=== PATIENT | female | born 1935 | race Caucasian/White ===

== ENCOUNTER 2017-05-23 11:59 | Observation (INO) | payer MEDICARE ==
[~2017-05-23] VITALS: Ht 165.1 cm; Wt 55.0 kg
[2017-05-23] VITALS (7 sets, daily range): BP systolic 110–151; BP diastolic 47–88; PULSE 78–85; RESP 16–18; TEMP 97.3–97.7; O2SAT 94–98
[~2017-05-23 11:59] MED LIST: ALBU0.086 NEB; ASPI81TA82 PO; CLOP75TA PO; COZA50TA PO; DIAZ5 PO; DILA100C PO; ESTRTAB6 PO; FORM12I INH; FURO20TA PO; IPRA0.03; METO100T PO; POTA-267 PO; PRED10 PO; PROT40TA PO; THEO200T27 PO; VENTAER INH; ZOCO40TA PO
[2017-05-23] MEDS ORDERED: PANTOPRAZOLE INJ 80 MG in SODIUM CHLORIDE 0.9% INJ 35 ML IV ONE (12:15)
[2017-05-23] MEDS ORDERED: SODIUM CHLORID 0.9% 500 ML INJ 500 ML IV ONE (12:15)
[2017-05-23] MEDS ORDERED: SODIUM CHLORIDE 0.9% FLUSH 10 ML FLUSH IVF PRN (12:15)
[2017-05-23] MEDS ORDERED: PANTOPRAZOLE INJ 80 MG in SODIUM CHLORIDE 0.9% INJ 100 ML IV SCH (12:15)
[2017-05-23] MEDS ORDERED: ONDANSETRON HCL 4 MG/2 ML VIAL IVP ONE (12:15)
--- NOTE | 2017-05-23 12:17 | PD ---
HPI Chief Complaint: GI Complaint Time Seen by Provider: 12:14 Travel History International Travel<30 days: No Contact w/Intl Traveler<30days: No Traveled to known affect area: No History of Present Illness HPI 81-year-old female patient with history of multiple medical issues, currently on Plavix and aspirin, presents to the ER today because she states that she had started vomiting red blood this morning. She brings a tile which shows blood clots. She denies any black stools, fevers, chest pains, shortness of breath, diarrhea, or any other symptoms. She denies any previous history of GI bleeding. Modifying Factors: None Associated Signs & Symptoms: Vomiting blood Risk Factors: None PFSH Past Medical History Hx Anticoagulant Therapy: Yes Arthritis: Yes Asthma: No Atrial Fibrillation: Yes Autoimmune Disease: No Blood Disorders: No Heart Rhythm Problems: No Cancer: No Cardiovascular Problems: Yes High Cholesterol: Yes Chest Pain: Yes Congestive Heart Failure: No COPD: Yes Cerebrovascular Accident: Yes (CVA 2013) Diabetes: No Diminished Hearing: Yes Endocrine: No Gastrointestinal Disorders: Yes GERD: Yes Genitourinary: No Hepatitis: No Hiatal Hernia: No Hypertension: Yes Immune Disorder: No Kidney Stones: Yes Musculoskeletal: Yes Neurologic: Yes Psychiatric: No Respiratory: Yes Migraines: No Seizures: Yes (POST CVA) Sleep Apnea: No Thyroid Disease: No Ulcer: No PNEUMOCCOCAL Vaccine (Year): 1 ?: Not Menopausal: Yes Past Surgical History Abdominal Surgery: Yes (APPENDECTOMY,CHOECYSTECTOMY, hysterectomy) Appendectomy: Yes Cholecystectomy: Yes (2002) Endocrine Surgery: Yes (GALLBLADDER) Eye Surgery: Yes (BILAT CATARACT) Hysterectomy: Yes (1986) Pacemaker: No Other Surgery: Yes (BREAST BIOPSIES) Social History Alcohol Use: No (DENIES) Tobacco Use: No (FORMER) Substance Use: No Allergies-Medications (Allergen,Severity, Reaction): Coded Allergies: Cardizem (Verified Allergy, Severe, 05/23/17) hives Cipro (Verified Allergy, Severe, Rash, 05/23/17) Cymbalta (Unverified Allergy, Severe, Confusion, 05/23/17) Erythromycins (Verified Allergy, Severe, "MYCINS"-HIVES, 05/23/17) Maxzide (Verified Allergy, Severe, 05/23/17) Norvasc (Verified Allergy, Severe, SWELLING, 05/23/17) Talwin (Verified Allergy, Severe, CRAZY, 05/23/17) Gabapentin (Verified Allergy, Unknown, 05/23/17) Reported Meds & Prescriptions Reported Meds & Active Scripts Active Reported Ventolin Hfa 18 GM Inh (Albuterol Sulfate) 90 Mcg/Act Aer 2 Puff INH Q4-6H PRN Spironolactone 25 Mg Tab 25 Mg PO DAILY Zocor (Simvastatin) 10 Mg Tab 10 Mg PO DAILY Prednisone 10 Mg Tab 15 Mg PO DAILY Potassium Chloride ER (Potassium Chloride) 20 Meq Tab 20 Meq PO DAILY Pantoprazole (Pantoprazole Sodium) 40 Mg Tab 40 Mg PO DAILY Metoprolol Tartrate 100 Mg Tab 100 Mg PO BID Losartan (Losartan Potassium) 100 Mg Tab 100 Mg PO DAILY Furosemide 20 Mg Tab 20 Mg PO EVERY OTHER DAY Perforomist Neb (Formoterol Fumarate) 20 Mcg/2 Ml Neb 1 Nebule INH BID Estroven Mood & Memory (Black Cohosh-Soy Isoflavones-G) 1 Tab 1 Tab PO DAILY Dilantin (Phenytoin Extended) 100 Mg Cap 100 Mg PO BID Clopidogrel (Clopidogrel Bisulfate) 75 Mg Tab 75 Mg PO DAILY Albuterol Neb (Albuterol Sulfate) 2.5 Mg/3 Ml Neb 2.5 Mg NEB Q4HR NEB While awake Review of Systems Except as stated in HPI: all other systems reviewed are Neg Physical Exam Narrative GENERAL: Well-developed pleasant elderly white female patient currently in mild distress. Awake and oriented 3. SKIN: Focused skin assessment warm/dry. HEAD: Atraumatic. Normocephalic. EYES: Pupils equal and round. No scleral icterus. No injection or drainage. ENT: No nasal bleeding or discharge. Mucous membranes pink and moist. NECK: Trachea midline. No JVD. CARDIOVASCULAR: Regular rate and rhythm. No murmur appreciated. RESPIRATORY: No accessory muscle use. Clear to auscultation. Breath sounds equal bilaterally. GASTROINTESTINAL: Abdomen soft, non-tender, nondistended. Hepatic and splenic margins not palpable. MUSCULOSKELETAL: No obvious deformities. No clubbing. No cyanosis. No edema. NEUROLOGICAL: Awake and alert. No obvious cranial nerve deficits. Motor grossly within normal limits. Normal speech. PSYCHIATRIC: Appropriate mood and affect; insight and judgment normal. Data Data Last Documented VS Vital Signs Date Time Temp Pulse Resp B/P Pulse Ox O2 Delivery O2 Flow Rate FiO2 05/23/17 12:30 97 Room Air 05/23/17 12:06 97.4 85 18 127/60 Orders Complete Blood Count With Diff (05/23/17 12:14) Comprehensive Metabolic Panel (05/23/17 12:14) Lipase (05/23/17 12:14) Prothrombin Time / Inr (Pt) (05/23/17 12:14) Act Partial Throm Time (Ptt) (05/23/17 12:14) Type And Screen (05/23/17 12:14) Ecg Monitoring (05/23/17 12:14) Iv Access Insert/Monitor (05/23/17 12:14) Oximetry (05/23/17 12:14) Ondansetron Inj (Zofran Inj) (05/23/17 12:15) Sodium Chloride 0.9% Flush (Ns Flush) (05/23/17 12:15) Pantoprazole Inj (Protonix Inj) (05/23/17 12:15) Pantoprazole Inj (Protonix Inj) (05/23/17 12:15) Sodium Chlorid 0.9% 500 Ml Inj (Ns 500 M (05/23/17 12:15) Consult Gastroenterology (05/23/17 ) NPO (05/23/17 13:13) Labs Laboratory Tests Test 05/23/17 12:30 White Blood Count 7.4 TH/MM3 Red Blood Count 3.22 MIL/MM3 Hemoglobin 10.5 GM/DL Hematocrit 31.9 % Mean Corpuscular Volume 98.9 FL Mean Corpuscular Hemoglobin 32.6 PG Mean Corpuscular Hemoglobin 33.0 % Concent Red Cell Distribution Width 14.0 % Platelet Count 299 TH/MM3 Mean Platelet Volume 7.3 FL Neutrophils (%) (Auto) 70.9 % Lymphocytes (%) (Auto) 22.2 % Monocytes (%) (Auto) 5.2 % Eosinophils (%) (Auto) 1.2 % Basophils (%) (Auto) 0.5 % Neutrophils # (Auto) 5.2 TH/MM3 Lymphocytes # (Auto) 1.6 TH/MM3 Monocytes # (Auto) 0.4 TH/MM3 Eosinophils # (Auto) 0.1 TH/MM3 Basophils # (Auto) 0.0 TH/MM3 CBC Comment DIFF FINAL Differential Comment Prothrombin Time 10.6 SEC Prothromb Time International 1.0 RATIO Ratio Activated Partial 22.4 SEC Thromboplast Time Sodium Level 140 MEQ/L Potassium Level 4.5 MEQ/L Chloride Level 103 MEQ/L Carbon Dioxide Level 29.5 MEQ/L Anion Gap 8 MEQ/L Blood Urea Nitrogen 44 MG/DL Creatinine 1.30 MG/DL Estimat Glomerular Filtration 40 ML/MIN Rate Random Glucose 99 MG/DL Calcium Level 8.5 MG/DL Total Bilirubin 0.3 MG/DL Aspartate Amino Transf 29 U/L (AST/SGOT) Alanine Aminotransferase 20 U/L (ALT/SGPT) Alkaline Phosphatase 56 U/L Total Protein 5.7 GM/DL Albumin 2.9 GM/DL Lipase 263 U/L MDM Medical Decision Making Medical Screen Exam Complete: Yes Emergency Medical Condition: Yes Medical Record Reviewed: Yes Interpretation(s) Laboratory Tests Test 05/23/17 12:30 Red Blood Count 3.22 MIL/MM3 (4.00-5.30) Hemoglobin 10.5 GM/DL (11.6-15.3) Hematocrit 31.9 % (35.0-46.0) Neutrophils (%) (Auto) 70.9 % (16.0-70.0) Activated Partial 22.4 SEC Thromboplast Time (24.3-30.1) Blood Urea Nitrogen 44 MG/DL (7-18) Creatinine 1.30 MG/DL (0.50-1.00) Estimat Glomerular Filtration 40 ML/MIN (>89) Rate Total Protein 5.7 GM/DL (6.4-8.2) Albumin 2.9 GM/DL (3.4-5.0) Differential Diagnosis GI bleeding/rule out coagulopathy versus anemia Narrative Course Vital signs are stable in the ER. His H&H appears to be stable. Her coagulation panel is unremarkable. At this point, my plan would be to admit her for observation for hematemesis and GI bleeding. Case was discussed with Dr. Ta who states he wants the patient to stay nothing by mouth for possible scoping today. Case was then discussed with Dr. Osborne for admission. Diagnosis Primary Impression: Hematemesis Additional Impression: GI bleed Admitting Information Admitting Physician Requests: Admit Emily Paredes MD May 23, 2017 12:17
[2017-05-23 12:37] LABS: AUTOMATED NEUTROPHIL # 5.2 TH/MM3 (1.8-7.7); BASOPHIL % 0.5 % (0.0-2.0); EOSINOPHIL # 0.1 TH/MM3 (0-0.4); EOSINOPHIL % 1.2 % (0.0-4.0); HEMATOCRIT 31.9 % (35.0-46.0); HEMO FLAGS DIFF FINAL; LYMPH % 22.2 % (9.0-44.0); LYMPHOCYTE # 1.6 TH/MM3 (1.0-4.8); MEAN CELL VOLUME 98.9 FL (80.0-100.0); MEAN CORPUSCULAR HEMOGLOBIN 32.6 PG (27.0-34.0); MONO % 5.2 % (0.0-8.0); NEUT % 70.9 % (16.0-70.0); PLATELET COUNT 299 TH/MM3 (150-450); RED BLOOD COUNT 3.22 MIL/MM3 (4.00-5.30); WHITE BLOOD COUNT 7.4 TH/MM3 (4.0-11.0)
[2017-05-23 12:45] LABS: CHLORIDE 103 MEQ/L (98-107); POTASSIUM 4.5 MEQ/L (3.5-5.1); SODIUM (NA) 140 MEQ/L (136-145)
[2017-05-23 12:49] LABS: ANION GAP 8 MEQ/L (5-15); BICARBONATE 29.5 MEQ/L (21.0-32.0); BLOOD UREA NITROGEN 44 MG/DL (7-18)
[2017-05-23 12:50] LABS: APTT (PATIENT) 22.4 SEC (24.3-30.1); PROTHROMBIN TIME - PATIENT 10.6 SEC (9.8-11.6)
[2017-05-23 12:51] LABS: ALT (GPT) 20 U/L (10-53); AST (GOT) 29 U/L (15-37)
[2017-05-23 12:52] LABS: GLOMERULAR FILTRATION RATE 40 ML/MIN (>89)
[2017-05-23 12:53] LABS: TOTAL BILIRUBIN ADULT 0.3 MG/DL (0.2-1.0)
[2017-05-23 12:54] LABS: ALKALINE PHOSPHATASE 56 U/L (45-117)
[2017-05-23] MEDS ORDERED: METO100T PO (13:20)
[2017-05-23] MEDS ORDERED: VENTAER INH (13:20)
[2017-05-23] MEDS ORDERED: LOSA100T PO (13:20)
[2017-05-23] MEDS ORDERED: ESTRTAB6 PO (13:20)
[2017-05-23] MEDS ORDERED: DILA100C PO (13:20)
[2017-05-23] MEDS ORDERED: PANT40TA3 PO (13:20)
[2017-05-23] MEDS ORDERED: POTA-163 PO (13:20)
[2017-05-23] MEDS ORDERED: CLOP75TA PO (13:20)
[2017-05-23] MEDS ORDERED: SPIR25TA PO (13:20)
[2017-05-23] MEDS ORDERED: FURO20TA PO (13:20)
[2017-05-23] MEDS ORDERED: FORM20NE INH (13:20)
[2017-05-23] MEDS ORDERED: ZOCO10TA PO (13:20)
[2017-05-23] MEDS ORDERED: ALBU0.08 NEB (13:20)
[2017-05-23] MEDS ORDERED: PRED10 PO (13:20)
[2017-05-23] MEDS ORDERED: ALBUTEROL SULFATE 90 MCG/ACT HFA 8 GM INHALER INH PRN (14:30)
[2017-05-23] MEDS ORDERED: ALBUTEROL SULFATE 90 MCG/ACT HFA 18 GM INHALER INH PRN (14:45)
[2017-05-23] MEDS ORDERED: FORMOTEROL INH SCH (15:00)
[2017-05-23] MEDS: RESP: ALBUTEROL 2.5 MG/3 ML NEB (SCH) INH ×3 (15:13→23:19)
--- NOTE | 2017-05-23 17:45 | HHI.HP ---
HPI Service [facility] Hospitalists Primary Care Physician Coleen Ricketts MD Admission Diagnosis GI bleed/hematemesis Chief Complaint: hematemesis this am Travel History International Travel<30 Days: No Contact w/Intl Traveler <30 Da: No Traveled to Known Affected Are: No History of Present Illness 81-year-old female patient with history of multiple medical issues, currently on Plavix and aspirin for CVA 2013 ,with seizure disorder, presents to the ER today because she states that she had started vomiting red blood this morning. She brings a tile which shows blood clots. She denies any black stools, fevers , chest pains, shortness of breath, diarrhea, or any other symptoms. She denies any previous history of GI bleeding. No other symptoms . Patient to be admitted follow cbc and GI evaluation. Review of Systems Other hematemesis Past Family Social History Past Medical History CVA 2013,afib,djd,hyperlipid,COPD,GERD,HTN,kidney stone,seizure Past Surgical History appendix,gallbladder,hysterectomy,cataract Reported Medications Ventolin Hfa 18 GM Inh (Albuterol Sulfate) 90 Mcg/Act Aer 2 Puff INH Q4-6H PRN Spironolactone 25 Mg Tab 25 Mg PO DAILY Zocor (Simvastatin) 10 Mg Tab 10 Mg PO DAILY Prednisone 10 Mg Tab 15 Mg PO DAILY Potassium Chloride ER (Potassium Chloride) 20 Meq Tab 20 Meq PO DAILY Pantoprazole (Pantoprazole Sodium) 40 Mg Tab 40 Mg PO DAILY Metoprolol Tartrate 100 Mg Tab 100 Mg PO BID Losartan (Losartan Potassium) 100 Mg Tab 100 Mg PO DAILY Furosemide 20 Mg Tab 20 Mg PO EVERY OTHER DAY Perforomist Neb (Formoterol Fumarate) 20 Mcg/2 Ml Neb 1 Nebule INH BID Estroven Mood & Memory (Black Cohosh-Soy Isoflavones-G) 1 Tab 1 Tab PO DAILY Dilantin (Phenytoin Extended) 100 Mg Cap 100 Mg PO BID Clopidogrel (Clopidogrel Bisulfate) 75 Mg Tab 75 Mg PO DAILY Albuterol Neb (Albuterol Sulfate) 2.5 Mg/3 Ml Neb 2.5 Mg NEB Q4HR NEB While Allergies: Coded Allergies: Cardizem (Verified Allergy, Severe, 05/23/17) hives Cipro (Verified Allergy, Severe, Rash, 05/23/17) Cymbalta (Unverified Allergy, Severe, Confusion, 05/23/17) Erythromycins (Verified Allergy, Severe, "MYCINS"-HIVES, 05/23/17) Maxzide (Verified Allergy, Severe, 05/23/17) Norvasc (Verified Allergy, Severe, SWELLING, 05/23/17) Talwin (Verified Allergy, Severe, CRAZY, 05/23/17) Gabapentin (Verified Allergy, Unknown, 05/23/17) Social History former smoker Physical Exam Vital Signs Vital Signs Date Time Temp Pulse Resp B/P Pulse Ox O2 Delivery O2 Flow Rate FiO2 05/23/17 16:00 97.3 78 18 121/57 98 05/23/17 15:17 96 21 05/23/17 13:34 80 16 110/47 97 05/23/17 12:30 97 Room Air 05/23/17 12:06 97.4 85 18 127/60 97 Physical Exam GENERAL: This is a well-nourished, well-developed patient, in no apparent distress. SKIN: No rashes, ecchymoses or lesions. Cool and dry. HEAD: Atraumatic. Normocephalic. No temporal or scalp tenderness. EYES: Pupils equal round and reactive. Extraocular motions intact. No scleral icterus. No injection or drainage. ENT: Nose without bleeding, purulent drainage or septal hematoma. Throat without erythema, tonsillar hypertrophy or exudate. Uvula midline. Airway patent. NECK: Trachea midline. No JVD or lymphadenopathy. Supple, nontender, no meningeal signs. CARDIOVASCULAR: Regular rate and rhythm without murmurs, gallops, or rubs. RESPIRATORY: Clear to auscultation. Breath sounds equal bilaterally. No wheezes , rales, or rhonchi. GASTROINTESTINAL: Abdomen soft, non-tender, nondistended. No hepato-splenomegaly , or palpable masses. No guarding. MUSCULOSKELETAL: Extremities without clubbing, cyanosis, or edema. No joint tenderness, effusion, or edema noted. No calf tenderness. Negative Homans sign bilaterally. NEUROLOGICAL: Awake and alert. Cranial nerves II through XII intact. Motor and sensory grossly within normal limits. Five out of 5 muscle strength in all muscle groups. Normal speech. Laboratory Laboratory Tests Test 05/23/17 12:30 White Blood Count 7.4 Red Blood Count 3.22 Hemoglobin 10.5 Hematocrit 31.9 Mean Corpuscular Volume 98.9 Mean Corpuscular Hemoglobin 32.6 Mean Corpuscular Hemoglobin 33.0 Concent Red Cell Distribution Width 14.0 Platelet Count 299 Mean Platelet Volume 7.3 Neutrophils (%) (Auto) 70.9 Lymphocytes (%) (Auto) 22.2 Monocytes (%) (Auto) 5.2 Eosinophils (%) (Auto) 1.2 Basophils (%) (Auto) 0.5 Neutrophils # (Auto) 5.2 Lymphocytes # (Auto) 1.6 Monocytes # (Auto) 0.4 Eosinophils # (Auto) 0.1 Basophils # (Auto) 0.0 CBC Comment DIFF FINAL Differential Comment Prothrombin Time 10.6 Prothromb Time International 1.0 Ratio Activated Partial 22.4 Thromboplast Time Sodium Level 140 Potassium Level 4.5 Chloride Level 103 Carbon Dioxide Level 29.5 Anion Gap 8 Blood Urea Nitrogen 44 Creatinine 1.30 Estimat Glomerular Filtration 40 Rate Random Glucose 99 Calcium Level 8.5 Total Bilirubin 0.3 Aspartate Amino Transf 29 (AST/SGOT) Alanine Aminotransferase 20 (ALT/SGPT) Alkaline Phosphatase 56 Total Protein 5.7 Albumin 2.9 Lipase 263 Blood Type A POSITIVE Antibody Screen NEGATIVE Result Diagram: 05/23/17 1230 05/23/17 1230 Course in er started on protonix drip Assessment and Plan Problem List: (1) Hematemesis Status: Acute Plan: follow cbc start protonix drip NPO as GI may scope today (2) GI bleed Status: Acute Plan: as above Assessment and Plan further plan as case develops follow cbc hols asa for now continue plavix Code Status full Discussed Condition With patient Physician Certification 2 Midnight Certification Type: Admission for Inpatient Services Order for Inpatient Services The services are ordered in accordance with Medicare regulations or non- Medicare payer requirements, as applicable. In the case of services not specified as inpatient-only, they are appropriately provided as inpatient services in accordance with the 2-midnight benchmark. Estimated LOS (days): 2 2 days is the estimated time the patient will need to remain in the hospital, assuming treatment plan goals are met and no additional complications. Post-Hospital Plan: Not yet determined Peter Harris MD May 23, 2017 17:44
[2017-05-23] MEDS ORDERED: MIDAZOLAM HCL 5 MG/ML VIAL (1 ML) ONE (19:50)
--- NOTE | 2017-05-23 21:04 | GIPROC ---
[facility] [address] [place] [address], [id number] EGD PROCEDURE REPORT EXAM DATE: 05/23/2017 PATIENT NAME: Roxy Joy MR #: [id number] BIRTHDATE: 1935 ATTENDING: Nas Ta MD ORDER #: [id number] INVENTORY SPECIALIST MANAGER: Saeid Martinez and Kumar Ma STATUS: inpatient INDICATIONS: The patient is a 81 yr old female here for an EGD due to hematemesis PROCEDURE PERFORMED: EGD, diagnostic MEDICATIONS: None and Per Anesthesia. TOPICAL ANESTHETIC: Lidocaine [place] CONSENT: The patient understands the risks and benefits of the procedure and understands that these risks include, but are not limited to: sedation, allergic reaction, infection, perforation and/or bleeding. Alternative means of evaluation and treatment include, among others: physical exam, x-rays, and/or surgical intervention. The patient elects to proceed with this endoscopic procedure. medical equipment was checked for proper function. Hand hygiene and appropriate measures for infection prevention was taken. After the risks, benefits and alternatives of the procedure were thoroughly explained, Informed consent was verified, confirmed and timeout was successfully executed by the treatment team. The patient was anesthetized with topical anesthesia and the Pentax EG-[id number] endoscope was introduced through the mouth and advanced to the second portion of the duodenum. Retroflexed views revealed no abnormalities The gastroscope was then slowly withdrawn and removed. Deep gastric ulcer in the antrum no active bleeding, most likely source of the bleed gastritis. The endoscopy was otherwise normal. No sign of active bleed. ADVERSE EVENTS: There were no complications. IMPRESSIONS: 1. Deep gastric ulcer in the antrum no active bleeding, most likely source of the bleed gastritis 2. Normal endoscopy otherwise 3. No sign of active bleed 4. Retroflexed views revealed no abnormalities RECOMMENDATIONS: 1. Anti-reflux regimen 2. Avoid NSAIDS 3. If anticoagulation is needed, please use the lowest possible does with close monitering check stool for H pylori 4. Anti-reflux regimen 5. Protonix 40mg Q AM PATIENT CONDITION: stable DISPOSITION: Inpatient REPEAT EXAM: Return 1 month EGD RTC in 2 wks Nas Ta MD eSigned: Nas Ta MD 05/23/2017 9:03 PM cc: PATIENT NAME: Roxy Joy MR#: [id number]
--- NOTE | 2017-05-23 21:10 | MB ---
cc: ELBA PEREZ M.D. DATE OF CONSULTATION 05/23/2017 DATE OF 1935 REASON FOR REFERRAL Hematemesis. Thank you for the consultation. REFERRING PHYSICIAN Dr. Harris HISTORY OF PRESENT ILLNESS This is a pleasant 81-year-old lady with multiple medical problems. The patient was doing okay until this morning when she started having some cramping and she was retching and after she was retching she brought some vomitus with bloody clots. The patient denied massive bleeding and denied any black stool or fever. No significant amount of vomiting except this episode. The patient is on anticoagulation including Plavix and aspirin for a CVA. The patient denied any other GI symptom at this time. PAST MEDICAL HISTORY 1. Significant for CVA. 2. Hyperlipidemia. 3. COPD. 4. Hypertension. 5. Kidney stone. 6. Seizure disorder. 7. Reflux symptoms. MEDICATIONS Reviewed in the chart. PAST SURGICAL HISTORY Significant for hysterectomy, cataract surgery, gallbladder, appendix removal. ALLERGIES MULTIPLE INCLUDING CIPRO, CYMBALTA, ERYTHROMYCIN, MAXZIDE, NORVASC, TALWIN, GABAPENTIN, CARDIZEM. SOCIAL HISTORY No tobacco at this time, she used to smoke and rare alcohol. REVIEW OF SYSTEMS All 12-point negative except HPI. PHYSICAL EXAMINATION GENERAL: Alert, oriented, no acute distress. VITAL SIGNS: Stable. HEENT: Pupils are round, reactive to light. NECK: Supple. CHEST: Clear to auscultation and precaution. CARDIAC: Regular rate and rhythm. No murmur or gallop at this time. ABDOMEN: Soft, nondistended, nontender, positive bowel sounds. EXTREMITIES: No edema, clubbing or cyanosis. NEUROLOGICALLY: Alert, oriented, intact. No focal abnormality. PSYCHOLOGICALLY: Appropriate. LABORATORY DATA White count 7.4. Hemoglobin 10.5, platelet 299. INR 1.0. Chemistry BUN 44, creatinine 1.3. Normal liver function tests. Normal lipase. ASSESSMENT/PLAN A 81-year-old lady who has nausea and vomiting and hematemesis with mild anemia, could be Farheen-Jackson tear, could be peptic ulcer disease, could be esophagitis. I will plan on doing upper endoscopy to ensure that she is not actively bleeding. Will be careful because the patient is on anticoagulation and there is a slight increased risk of bleeding but we want to make sure that she does not continue to bleed if there is active bleeding. The patient agreeable to have the procedure done. This will be done on an urgent basis today. MD CATARINA Huffman/NADEEM /8:03 PM /8:55 PM
[2017-05-23] MEDS: PHENYTOIN SODIUM 100 MG CAP PO SCH (22:01)
[2017-05-23] MEDS: METOPROLOL TARTRATE 100 MG TAB PO SCH (22:01)
[2017-05-24 00:17] VITALS: BP 144/62; PULSE 83; RESP 20; TEMP 96.6; O2SAT 93
[2017-05-24] MEDS: RESP: ALBUTEROL 2.5 MG/3 ML NEB (SCH) INH ×4 (04:00→15:05)
[2017-05-24 07:17] LABS: AUTOMATED NEUTROPHIL # 3.3 TH/MM3 (1.8-7.7); BASOPHIL % 0.4 % (0.0-2.0); EOSINOPHIL # 0.1 TH/MM3 (0-0.4); EOSINOPHIL % 1.3 % (0.0-4.0); HEMATOCRIT 26.7 % (35.0-46.0); HEMO FLAGS DIFF FINAL; LYMPH % 28.9 % (9.0-44.0); LYMPHOCYTE # 1.5 TH/MM3 (1.0-4.8); MEAN CELL VOLUME 98.1 FL (80.0-100.0); MEAN CORPUSCULAR HEMOGLOBIN 32.9 PG (27.0-34.0); MEAN CORPUSCULAR HGB CONC 33.5 % (32.0-36.0); MONO % 5.1 % (0.0-8.0); NEUT % 64.3 % (16.0-70.0); PLATELET COUNT 240 TH/MM3 (150-450); RED BLOOD COUNT 2.72 MIL/MM3 (4.00-5.30); RED CELL DISTRIBUTION WIDTH 13.6 % (11.6-17.2); WHITE BLOOD COUNT 5.2 TH/MM3 (4.0-11.0)
[2017-05-24 07:31] LABS: POTASSIUM 4.5 MEQ/L (3.5-5.1)
[2017-05-24 07:34] LABS: BICARBONATE 30.3 MEQ/L (21.0-32.0)
[2017-05-24 08:00] VITALS: BP 138/61; PULSE 75; RESP 20; TEMP 97.2; O2SAT 96
[2017-05-24 08:06] VITALS: O2SAT 94
[2017-05-24] MEDS ORDERED: PANTOPRAZOLE SOD 40 MG DELAYED RELEASE TAB PO SCH (09:00)
[2017-05-24] MEDS ORDERED: POTASSIUM CHLORIDE 20 MEQ CONTROLLED RELEASE TAB PO SCH (09:00)
[2017-05-24] MEDS ORDERED: [UNRECOGNIZED DRUG - OTHER] PO SCH (09:00)
[2017-05-24] MEDS ORDERED: LOSARTAN 50 MG TAB PO SCH (09:00)
[2017-05-24] MEDS ORDERED: CLOPIDOGREL 75 MG TAB PO SCH (09:00)
[2017-05-24] MEDS ORDERED: SPIRONOLACTONE 25 MG TAB PO SCH (09:00)
[2017-05-24] MEDS ORDERED: PRAVASTATIN SOD 20 MG TAB PO SCH (09:00)
[2017-05-24] MEDS ORDERED: predniSONE 5 MG TAB PO SCH (09:00)
[2017-05-24] MEDS: PHENYTOIN SODIUM 100 MG CAP PO SCH (10:02)
[2017-05-24] MEDS: METOPROLOL TARTRATE 100 MG TAB PO SCH (10:02)
--- NOTE | 2017-05-24 11:08 | HHI.PR ---
Subjective Remarks Patient feeling well admitted for upper gi bleed endoscopy showed peptic ulcer not actively bleeding and GI changed patient to po protonix hgb did decrease to 8.9 will recheck later today if stable discharge later. Advance diet Objective Vitals Vital Signs Date Time Temp Pulse Resp B/P Pulse Ox O2 Delivery O2 Flow Rate FiO2 05/24/17 08:06 94 21 05/24/17 08:00 97.2 75 20 138/61 96 05/24/17 04:44 05/24/17 00:17 96.6 83 20 144/62 93 05/23/17 21:31 97.7 85 18 151/88 94 05/23/17 19:15 97 21 05/23/17 16:00 97.3 78 18 121/57 98 05/23/17 15:17 96 21 05/23/17 13:34 80 16 110/47 97 05/23/17 12:30 97 Room Air 05/23/17 12:06 97.4 85 18 127/60 97 05/23/17 05/23/17 05/24/17 15:00 23:00 07:00 Intake Total 600 ml 40 ml Balance 600 ml 40 ml Intake IV Total 600 ml 40 ml Result Diagram: 05/24/17 0706 05/24/17 0706 A/P Problem List: (1) Hematemesis Status: Acute Plan: follow cbc on protonix with peptic ulcer advance diet (2) GI bleed Status: Acute Plan: as above Assessment and Plan as above recheck cbc if stable discharge later today Peter Harris MD May 24, 2017 11:08
[2017-05-24 12:00] VITALS: BP 118/50; PULSE 64; RESP 18; TEMP 97.7; O2SAT 96
--- NOTE | 2017-05-24 14:11 | HHI.GIFU ---
Subjective Remarks patient is doing well, no sign of active bleed, she dropped her HGB but no other complains. had EGD yesterday showing large deep ulcer in the antrum but no active bleed Objective Vitals I&O Vital Signs Date Time Temp Pulse Resp B/P Pulse Ox O2 Delivery O2 Flow Rate FiO2 05/24/17 12:00 97.7 64 18 118/50 96 05/24/17 08:06 94 21 05/24/17 08:00 97.2 75 20 138/61 96 05/24/17 04:44 05/24/17 00:17 96.6 83 20 144/62 93 05/23/17 21:31 97.7 85 18 151/88 94 05/23/17 19:15 97 21 05/23/17 16:00 97.3 78 18 121/57 98 05/23/17 15:17 96 21 I/O 05/23/17 05/23/17 05/23/17 05/24/17 05/24/17 05/24/17 07:00 15:00 23:00 07:00 15:00 23:00 Intake Total 600 ml 40 ml Balance 600 ml 40 ml Intake IV Total 600 ml 40 ml Laboratory Laboratory Tests Test 05/24/17 07:06 White Blood Count 5.2 Red Blood Count 2.72 Hemoglobin 8.9 Hematocrit 26.7 Mean Corpuscular Volume 98.1 Mean Corpuscular Hemoglobin 32.9 Mean Corpuscular Hemoglobin 33.5 Concent Red Cell Distribution Width 13.6 Platelet Count 240 Mean Platelet Volume 7.2 Neutrophils (%) (Auto) 64.3 Lymphocytes (%) (Auto) 28.9 Monocytes (%) (Auto) 5.1 Eosinophils (%) (Auto) 1.3 Basophils (%) (Auto) 0.4 Neutrophils # (Auto) 3.3 Lymphocytes # (Auto) 1.5 Monocytes # (Auto) 0.3 Eosinophils # (Auto) 0.1 Basophils # (Auto) 0.0 CBC Comment DIFF FINAL Differential Comment Sodium Level 141 Potassium Level 4.5 Chloride Level 105 Carbon Dioxide Level 30.3 Anion Gap 6 Blood Urea Nitrogen 39 Creatinine 1.10 Estimat Glomerular Filtration 48 Rate Random Glucose 81 Calcium Level 8.0 Physical Exam HEENT: Pupils round and reactive to light; normocephalic; atraumatic; no jaundice. Throat is clear. NECK: Neck is supple, no JVD, no lymphadenopathy. CHEST: Chest is clear to auscultation and percussion. CARDIAC: Regular rate and rhythm with no murmur gallop or rubs. ABDOMEN: Soft, nondistended, nontender; no hepatosplenomegaly; bowel sounds are present in all four quadrants. EXTREMITIES: No clubbing, cyanosis, or edema. SKIN: Normal; no rash; no jaundice. SENIOR INFORMATICA DEVELOPER: No focal deficits; alert and oriented times three. Assessment and Plan Plan patient is doing better, no sign of active bleed, dropped HGB recommend continue PPI check H/H this afternoon PRBC if needed. EGD as outpatient in 4 wks Nas Ta MD May 24, 2017 14:11
[2017-05-24 15:03] LABS: HEMATOCRIT 28.3 % (35.0-46.0); MEAN CELL VOLUME 98.4 FL (80.0-100.0); MEAN CORPUSCULAR HEMOGLOBIN 33.5 PG (27.0-34.0); PLATELET COUNT 253 TH/MM3 (150-450); RED BLOOD COUNT 2.88 MIL/MM3 (4.00-5.30); RED CELL DISTRIBUTION WIDTH 13.4 % (11.6-17.2); REVIEW FLAG FINAL; WHITE BLOOD COUNT 5.9 TH/MM3 (4.0-11.0)
[2017-05-24] MEDS ORDERED: PANT40TA3 PO (15:50)
--- NOTE | 2017-05-24 15:51 | HHI.DCPOC ---
Discharge Care Plan Diagnosis: (1) Hematemesis (2) GI bleed Goals to Promote Your Health * To prevent worsening of your condition and complications * To maintain your health at the optimal level Directions to Meet Your Goals Take your medications as prescribed Follow your dietary instruction Follow activity as directed Keep your appointments as scheduled Take your immunizations and boosters as scheduled If your symptoms worsen call your PCP, if no PCP go to Urgent Care Center or Emergency Room Smoking is Dangerous to Your Health. Avoid second hand smoke Call the 24-hour hour crisis hotline for domestic abuse at Peter Harris MD May 24, 2017 15:51
--- NOTE | 2017-05-24 15:53 | HHI.DS ---
Discharge Summary Admission Date May 23, 2017 at 13:22 Admitting Diagnosis GI bleed/hematemesis (1) Hematemesis Diagnosis: [facility] (2) GI bleed Diagnosis: [facility] GI Procedures endoscopy Brief History 81-year-old female patient with history of multiple medical issues, currently on Plavix and aspirin for CVA 2013 ,with seizure disorder, presents to the ER today because she states that she had started vomiting red blood this morning. She brings a tile which shows blood clots. She denies any black stools, fevers , chest pains, shortness of breath, diarrhea, or any other symptoms. She denies any previous history of GI bleeding. No other symptoms . Patient to be admitted follow cbc and GI evaluation. CBC/BMP: 05/24/17 1450 05/24/17 0706 Significant Findings Laboratory Tests Test 05/23/17 05/24/17 05/24/17 12:30 07:06 14:50 Red Blood Count 3.22 MIL/MM3 2.72 MIL/MM3 2.88 MIL/MM3 (4.00-5.30) (4.00-5.30) (4.00-5.30) Hemoglobin 10.5 GM/DL 8.9 GM/DL 9.6 GM/DL (11.6-15.3) (11.6-15.3) (11.6-15.3) Hematocrit 31.9 % 26.7 % 28.3 % (35.0-46.0) (35.0-46.0) (35.0-46.0) Neutrophils (%) (Auto) 70.9 % (16.0-70.0) Activated Partial 22.4 SEC Thromboplast Time (24.3-30.1) Blood Urea Nitrogen 44 MG/DL (7-18) 39 MG/DL (7-18) Creatinine 1.30 MG/DL 1.10 MG/DL (0.50-1.00) (0.50-1.00) Estimat Glomerular Filtration 40 ML/MIN (>89) 48 ML/MIN (>89) Rate Total Protein 5.7 GM/DL (6.4-8.2) Albumin 2.9 GM/DL (3.4-5.0) Calcium Level 8.0 MG/DL (8.5-10.1) PE at Discharge GENERAL: SKIN: Warm and dry. HEAD: Atraumatic. Normocephalic. EYES: Pupils equal and round. No scleral icterus. No injection or drainage. ENT: No nasal bleeding or discharge. Mucous membranes pink and moist. NECK: Trachea midline. No JVD. CARDIOVASCULAR: Regular rate and rhythm. RESPIRATORY: No accessory muscle use. Clear to auscultation. Breath sounds equal bilaterally. GASTROINTESTINAL: Abdomen soft, non-tender, nondistended. Hepatic and splenic margins not palpable. MUSCULOSKELETAL: Extremities without clubbing, cyanosis, or edema. No obvious deformities. NEUROLOGICAL: Awake and alert. No obvious cranial nerve deficits. Motor grossly within normal limits. Five out of 5 muscle strength in the arms and legs. Normal speech. PSYCHIATRIC: Appropriate mood and affect; insight and judgment normal. Hospital Course patient hemoglobin at discharge >9 had ulcer on endoscopy not active bleed to follow up with gi and pcp and recheck cbc on 05/26/17 continue protonix 40 a day Pt Condition on Discharge: Good Discharge Disposition: Discharge Home Discharge Instructions DIET: Follow Instructions for: Heart Healthy Diet Activities you can perform: Regular-No Restrictions New Medications: Pantoprazole (Pantoprazole) 40 Mg Tab 40 MG PO DAILY ulcer #30 TAB Continued Medications: Albuterol 18 GM Inh (Ventolin Hfa 18 GM Inh) 90 Mcg/Act Aer 2 PUFF INH Q4-6H PRN SHORTNESS OF BREATH #1 Ref 0 INHALER Albuterol Neb (Albuterol Neb) 2.5 Mg/3 Ml Neb 2.5 MG NEB Q4HR NEB While awake Breathing Treatment #60 Ref 0 NEBULE Black Cohosh-Soy Isoflavones-G (Estroven Mood & Memory) 1 Tab 1 TAB PO DAILY hot flashes #30 TAB Clopidogrel (Clopidogrel) 75 Mg Tab 75 MG PO DAILY Blood Clot Prevention #30 Ref 0 TAB Formoterol Neb (Perforomist Neb) 20 Mcg/2 Ml Neb 1 NEBULE INH BID COPD #60 Ref 0 NEBULE Furosemide (Furosemide) 20 Mg Tab 20 MG PO EVERY OTHER DAY #30 Ref 0 TAB Losartan (Losartan) 100 Mg Tab 100 MG PO DAILY Blood Pressure Management #30 Ref 0 TAB Metoprolol Tartrate (Metoprolol Tartrate) 100 Mg Tab 100 MG PO BID Blood Pressure Management #60 Ref 0 TAB Pantoprazole (Pantoprazole) 40 Mg Tab 40 MG PO DAILY Reflux #30 Ref 0 TAB Phenytoin Extended (Dilantin) 100 Mg Cap 100 MG PO BID Control Seizures #90 Ref 0 CAP Potassium Chloride ER (Potassium Chloride ER) 20 Meq Tab 20 MEQ PO DAILY Electrolyte Replacement #30 Ref 0 TAB Prednisone (Prednisone) 10 Mg Tab 15 MG PO DAILY Ref 0 TAB Simvastatin (Zocor) 10 Mg Tab 10 MG PO DAILY Cholesterol Management #30 Ref 0 TAB Spironolactone (Spironolactone) 25 Mg Tab 25 MG PO DAILY Prevent Heart Failure #30 Ref 0 TAB Peter Harris MD May 24, 2017 15:53
[2017-05-25] MEDS ORDERED: FUROSEMIDE 20 MG TAB PO SCH (09:00)
== END 2017-05-24 17:38 | disposition home or self-care (01) ==
LOC: PHED 11:59 → PHEDA 13:22 → PH3B 14:17
PROVIDERS: ADMIT Internal Medicine; ATTEND Internal Medicine
DX: K25.3 Acute gastric ulcer without hemorrhage or perforation (principal); K92.0 Hematemesis; G40.909 Epilepsy, unspecified, not intractable, without status epilepticus; K21.9 Gastro-esophageal reflux disease without esophagitis; J44.9 Chronic obstructive pulmonary disease, unspecified; I48.91 Unspecified atrial fibrillation; E78.5 Hyperlipidemia, unspecified; D64.9 Anemia, unspecified; I10 Essential (primary) hypertension; Z87.891 Personal history of nicotine dependence; Z79.01 Long term (current) use of anticoagulants; Z79.82 Long term (current) use of aspirin; Z86.73 Personal history of transient ischemic attack (TIA), and cerebral infarction without residual deficits; Z87.442 Personal history of urinary calculi
CPT/HCPCS: 43235; 80048; 80053; 83690; 85025; 85027; 85610; 85730; 86850; 86900; 86901; 94620; 94640; 94664; 96361; 96365; 96375; 99152; 99285; C9113; G0378; J2250; J2405; J3010; J7040; J7512; J7613

== ENCOUNTER 2017-08-24 11:12 | Inpatient (IN) | payer MEDICARE ==
[2017-08-24] VITALS (12 sets, daily range): BP systolic 94–154; BP diastolic 45–70; PULSE 54–75; RESP 15–19; TEMP 97.4–97.7; O2SAT 94–100
[~2017-08-24] VITALS: Ht 167.6 cm; Wt 63.5 kg
[~2017-08-24 11:12] MED LIST changes: -DO NOT ADM ANY ANTICOAGULANT DRUGS PRN; -LACTATED RINGER'S 1000 ML INJ 1,000 ML ONE; -LEVOFLOXACIN 500 MG PREMIX INJ 100 ML IV ONE; -MEPERIDINE HCL 25 MG/ML VIAL ONE; -PROPOFOL 200 MG/20 ML AMP IV ONE; -metroNIDAZOLE 500 MG INJ 100 ML IV ONE
[2017-08-24] MEDS ORDERED: SODIUM CHLORIDE 0.9% FLUSH 10 ML FLUSH IV FLUSH PRN ×2 (11:30→15:30)
[2017-08-24] MEDS ORDERED: ONDANSETRON HCL 4 MG/2 ML VIAL IVP ONE (11:30)
[2017-08-24] MEDS ORDERED: MORPHINE SULFATE 4 MG/ML INJ IV PUSH ONE (11:30)
[2017-08-24] MEDS ORDERED: SODIUM CHLOR 0.9% 1000 ML INJ 1,000 ML IV SCH (11:30)
--- NOTE | 2017-08-24 11:39 | PD ---
HPI Chief Complaint: GI Complaint Time Seen by Provider: 11:23 Travel History International Travel<30 days: No Contact w/Intl Traveler<30days: No Traveled to known affect area: No History of Present Illness HPI 82-year-old female presents to the emergency department via EMS sent by Dr. Zeng. During colonoscopy, patient was suspected to have a perforated bowel in the sigmoid. Patient was immediately sent here. Patient is receiving Levaquin 500 mg via IV upon her arrival. Flagyl 500 mg IV was sent with her to receive after Levaquin is finished. Patient's past medical history for arthritis, hypertension, CHF, hyperlipidemia, CVA, GERD, hypertension, seizures, COPD. The patient reports diffuse abdominal pain. She is moaning at bedside. She denies any other significant complaints at this time. PFSH Past Medical History Hx Anticoagulant Therapy: Yes Arthritis: Yes Asthma: No Atrial Fibrillation: Yes Autoimmune Disease: No Blood Disorders: No Heart Rhythm Problems: No Cancer: No Cardiovascular Problems: Yes High Cholesterol: Yes Chest Pain: Yes Congestive Heart Failure: No COPD: Yes Cerebrovascular Accident: Yes Diabetes: No Diminished Hearing: Yes Endocrine: No Gastrointestinal Disorders: Yes GERD: Yes Genitourinary: No Hepatitis: No Hiatal Hernia: No Hypertension: Yes Immune Disorder: No Kidney Stones: Yes Musculoskeletal: Yes Neurologic: Yes Psychiatric: No Respiratory: Yes Migraines: No Seizures: Yes (POST CVA) Sleep Apnea: No Thyroid Disease: No Ulcer: No PNEUMOCCOCAL Vaccine (Year): 1 Menopausal: Yes Past Surgical History Abdominal Surgery: Yes (APPENDECTOMY,CHOECYSTECTOMY, hysterectomy) Appendectomy: Yes Cholecystectomy: Yes (2002) Endocrine Surgery: Yes (GALLBLADDER) Eye Surgery: Yes (BILAT CATARACT) Hysterectomy: Yes (1986) Pacemaker: No Other Surgery: Yes (BREAST BIOPSIES) Social History Alcohol Use: No (DENIES) Tobacco Use: No (FORMER) Substance Use: No Allergies-Medications (Allergen,Severity, Reaction): Coded Allergies: amlodipine (Unverified Allergy, Severe, SWELLING, 08/24/17) azithromycin (Unverified Allergy, Severe, "MYCINS"-HIVES, 08/24/17) ciprofloxacin (Unverified Allergy, Severe, Rash, 08/24/17) diltiazem (Unverified Allergy, Severe, 08/24/17) hives duloxetine (Unverified Allergy, Severe, Confusion, 08/24/17) erythromycin base (Unverified Allergy, Severe, "MYCINS"-HIVES, 08/24/17) hydrochlorothiazide (Unverified Allergy, Severe, 08/24/17) pentazocine (Unverified Allergy, Severe, CRAZY, 08/24/17) triamterene (Unverified Allergy, Severe, 08/24/17) gabapentin (Unverified Allergy, Unknown, 08/24/17) Reported Meds & Prescriptions Reported Meds & Active Scripts Active Pantoprazole (Pantoprazole Sodium) 40 Mg Tab 40 Mg PO DAILY Reported Ventolin Hfa 18 GM Inh (Albuterol Sulfate) 90 Mcg/Act Aer 2 Puff INH Q4-6H PRN Spironolactone 25 Mg Tab 25 Mg PO DAILY Zocor (Simvastatin) 10 Mg Tab 10 Mg PO DAILY Prednisone 10 Mg Tab 15 Mg PO DAILY Potassium Chloride ER (Potassium Chloride) 20 Meq Tab 20 Meq PO DAILY Pantoprazole (Pantoprazole Sodium) 40 Mg Tab 40 Mg PO DAILY Metoprolol Tartrate 100 Mg Tab 100 Mg PO BID Losartan (Losartan Potassium) 100 Mg Tab 100 Mg PO DAILY Furosemide 20 Mg Tab 20 Mg PO EVERY OTHER DAY Perforomist Neb (Formoterol Fumarate) 20 Mcg/2 Ml Neb 1 Nebule INH BID Estroven Mood & Memory (Black Cohosh-Soy Isoflavones-G) 1 Tab 1 Tab PO DAILY Dilantin (Phenytoin Extended) 100 Mg Cap 100 Mg PO BID Clopidogrel (Clopidogrel Bisulfate) 75 Mg Tab 75 Mg PO DAILY Albuterol Neb (Albuterol Sulfate) 2.5 Mg/3 Ml Neb 2.5 Mg NEB Q4HR NEB While awake Review of Systems Except as stated in HPI: all other systems reviewed are Neg Physical Exam Narrative GENERAL: Well-nourished, well-developed elderly female patient, afebrile. SKIN: Focused skin assessment warm/dry. HEAD: Normocephalic. Atraumatic. EYES: No scleral icterus. No injection or drainage. NECK: Supple, trachea midline. No JVD or lymphadenopathy. CARDIOVASCULAR: Regular rate and rhythm without murmurs, gallops, or rubs. RESPIRATORY: Breath sounds equal bilaterally. No accessory muscle use. Lungs sounds are clear to auscultation. GASTROINTESTINAL: Abdomen soft and nondistended. Patient has diffuse tenderness to palpation throughout. MUSCULOSKELETAL: No cyanosis, or edema. BACK: Nontender without obvious deformity. No CVA tenderness. Data Data Last Documented VS Orders Orders Complete Blood Count With Diff (08/24/17 11:23) Comprehensive Metabolic Panel (08/24/17 11:23) Prothrombin Time / Inr (Pt) (08/24/17 11:23) Act Partial Throm Time (Ptt) (08/24/17 11:23) Iv Access Insert/Monitor (08/24/17 11:23) Ecg Monitoring (08/24/17 11:23) Oximetry (08/24/17 11:23) Ondansetron Inj (Zofran Inj) (08/24/17 11:30) Sodium Chloride 0.9% Flush (Ns Flush) (08/24/17 11:30) Electrocardiogram (08/24/17 11:23) Sodium Chlor 0.9% 1000 Ml Inj (Ns 1000 M (08/24/17 11:30) Type And Screen (08/24/17 11:23) Chest, Single Ap (08/24/17 ) Admit Order (Ed Use Only) (08/24/17 11:23) MDM Medical Decision Making Medical Screen Exam Complete: Yes Emergency Medical Condition: Yes Medical Record Reviewed: Yes Differential Diagnosis Perforated bowel versus diverticulitis versus pancreatitis Narrative Course 82-year-old female was sent by Dr. Ta for suspected bowel perforation. I spoke with Dr. Sandoval, our surgeon resource economist, who was aware the patient was coming. He would like labs to be drawn, chest x-ray, EKG, surgical consent to be printed. He'll take the patient to the OR today. Patient is given normal saline at 100 mL's an hour. CBC, CMP, PTT, PT/INR, type and screen ordered and pending. EKG and chest x-ray are ordered and pending. Patient is admitted to Dr. Sandoval. Diagnosis Primary Impression: Perforated bowel Admitting Information Admitting Physician Requests: Admit Delaney Vergara Aug 24, 2017 11:39
[2017-08-24] MEDS ORDERED: GLYCOPYRROLATE 1 MG/5 ML SYRINGE IV PUSH ONE (12:00)
[2017-08-24] MEDS ORDERED: ePHEDrine/NS 25 MG/5 ML SYR IV ONE (12:00)
[2017-08-24] MEDS ORDERED: LACTATED RINGER'S 1000 ML INJ 2,000 ML IV ONE (12:00)
[2017-08-24] MEDS ORDERED: LIDOCAINE HCL 1% PF 5 ML AMPULE OTHER ONE (12:00)
[2017-08-24] MEDS ORDERED: PROPOFOL 200 MG/20 ML AMP IV ONE (12:00)
[2017-08-24] MEDS ORDERED: MIDAZOLAM HCL 2 MG/2 ML VIAL IV ONE (12:00)
[2017-08-24] MEDS ORDERED: ROCURONIUM INJ 50 MG/5 ML SYRINGE IV PUSH ONE (12:00)
[2017-08-24] MEDS ORDERED: ONDANSETRON HCL 4 MG/2 ML VIAL IV PUSH ONE (12:00)
[2017-08-24] MEDS ORDERED: NORMOSOL R INJ 2,000 ML IV ONE (12:00)
[2017-08-24] MEDS ORDERED: NEOSTIGMINE 3 MG/3 ML SYR IV ONE (12:00)
[2017-08-24] MEDS ORDERED: PHENYLEPH/NS 1000 MCG/10 ML SYR IV ONE (12:00)
[2017-08-24 12:03] LABS: AUTOMATED NEUTROPHIL # 4.2 TH/MM3 (1.8-7.7); BASOPHIL % 0.1 % (0.0-2.0); EOSINOPHIL % 0.7 % (0.0-4.0); HEMATOCRIT 39.5 % (35.0-46.0); HEMO FLAGS DIFF FINAL; LYMPH % 20.7 % (9.0-44.0); LYMPHOCYTE # 1.2 TH/MM3 (1.0-4.8); MEAN CELL VOLUME 97.8 FL (80.0-100.0); MEAN CORPUSCULAR HEMOGLOBIN 31.7 PG (27.0-34.0); MEAN CORPUSCULAR HGB CONC 32.4 % (32.0-36.0); MONO % 2.8 % (0.0-8.0); NEUT % 75.7 % (16.0-70.0); PLATELET COUNT 279 TH/MM3 (150-450); RED BLOOD COUNT 4.04 MIL/MM3 (4.00-5.30); RED CELL DISTRIBUTION WIDTH 14.2 % (11.6-17.2); WHITE BLOOD COUNT 5.6 TH/MM3 (4.0-11.0)
--- NOTE | 2017-08-24 12:29 | RADRPT ---
EXAM DATE/TIME: 08/24/2017 11:53 [facility] COMPARISON: No previous studies available for comparison. INDICATIONS : Evaluate for pneumothorax, pneumonia or communicable disease. Preop chest for repair of perforated bell wel today, chest and upper abdomen pain, evaluate free air MEDICAL HISTORY : colonoscopy today SURGICAL HISTORY : None. ENCOUNTER: Initial ACUITY: 1 day PAIN SCORE: 10/10 LOCATION: Bilateral chest FINDINGS: Marked free air. Lung spaces are clear. The heart and pulmonary vascularity are normal. CONCLUSION: Significant free air. Dr. Aakash stone.. Tom Joyner MD FACR on August 24, 2017 at 12:26 Board Certified Radiologist. This report was verified electronically.
--- NOTE | 2017-08-24 12:50 | MH ---
cc: ELBA TA M.D.ALICIABEREKET BHAKTA DATE OF ADMISSION: 08/24/2017 CHIEF COMPLAINT Perforation of sigmoid colon. HISTORY OF PRESENT ILLNESS This patient was having an upper GI endoscopy and a colonoscopy today with Dr. Ta and he called me after the procedure and said that when he was looking in the sigmoid colon he saw intra-abdominal fat consistent with omentum or epiploica. For this reason she was transferred from [place] to the emergency department at [facility] for evaluation and probable surgery. PAST MEDICAL HISTORY Past medical history is significant for: 1. Previous adenomatous polyps and her last colonoscopy was in 2010 by me. 2. She does have chronic obstructive pulmonary disease. She quit smoking 10 or 15 years ago. 3. 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 Dr. Ta was up this ulcer. She is now in the emergency department complaining of abdominal pain. She has no nausea, no vomiting. She did prep for her colonoscopy with a full Colyte prep and Dr. Ta gave her antibiotics after the procedure. This was approximately 2 hours ago. PAST MEDICAL HISTORY, SOCIAL HISTORY, FAMILY HISTORY, REVIEW OF SYSTEMS As above. PHYSICAL EXAMINATION GENERAL: A well-developed elderly thin patient, whom I have known for a long time. She was an operating room nurse. SKIN: Skin is warm and dry. HEENT: Extraocular muscles intact. NECK: Supple. CHEST: Clear. HEART: S1-S2 is heard. No murmurs or gallops. ABDOMEN: Abdomen is mildly distended, tender diffusely with peritoneal signs. RECTAL: Exam was not done. EXTREMITIES: Range of motion within normal limits. NEUROLOGIC: Grossly normal. IMPRESSION Apparent perforation of the sigmoid colon after attempted colonoscopy with Dr. Ta. PLAN Recommend exploratory laparotomy and possible repair of colotomy, possible sigmoid resection, possible colostomy, possible ileostomy. I have gone over all the risks, benefits, alternatives with the patient. I was unable to locate her to talk with him regarding this but she is ready to proceed to surgery. MD LINDA Blakely/GUADALUPE /12:29 PM /12:41 PM
[2017-08-24 13:04] LABS: BLOOD UREA NITROGEN 25 MG/DL (7-18); GLOMERULAR FILTRATION RATE 45 ML/MIN (>89)
[2017-08-24 13:05] LABS: ALKALINE PHOSPHATASE 85 U/L (45-117); ALT (GPT) 22 U/L (10-53); ANION GAP 7 MEQ/L (5-15); AST (GOT) 32 U/L (15-37); BICARBONATE 28.8 MEQ/L (21.0-32.0); CHLORIDE 101 MEQ/L (98-107); POTASSIUM 4.7 MEQ/L (3.5-5.1); SODIUM (NA) 137 MEQ/L (136-145); TOTAL BILIRUBIN ADULT 0.4 MG/DL (0.2-1.0)
[2017-08-24] MEDS ORDERED: metroNIDAZOLE 500 MG INJ 100 ML IV ONE (13:34)
[2017-08-24 13:36] LABS: PROTHROMBIN TIME - PATIENT 10.7 SEC (9.8-11.6)
[2017-08-24] MEDS ORDERED: POTASSIUM CHLOR 20 MEQ PREMIX 100 ML IV PRN (15:30)
[2017-08-24] MEDS ORDERED: NALOXONE HCL 0.4 MG/ML AMP IV PUSH PRN (15:30)
[2017-08-24] MEDS ORDERED: ACETAMINOPHEN/HYDROcodone 325 MG/5 MG TAB PO PRN (15:30)
[2017-08-24] MEDS ORDERED: SUGAMMADEX SODIUM 200 MG/2 ML VIAL IV PUSH ONE ×2 (15:30)
[2017-08-24] MEDS ORDERED: ENALAPRILAT 1.25 MG/ML VIAL IV PUSH PRN (15:30)
[2017-08-24] MEDS ORDERED: POTASSIUM CHLOR 40 MEQ PREMIX 100 ML IV PRN (15:30)
[2017-08-24] MEDS ORDERED: Post-op Orders (for Pharmacy) MISC XX ONE (15:30)
[2017-08-24] MEDS ORDERED: ONDANSETRON HCL 4 MG/2 ML VIAL IV PUSH PRN (15:30)
[2017-08-24] MEDS ORDERED: BENZOCAINE 6 MG/MENTHOL 10 MG LOZENGE BUCCAL PRN (15:30)
[2017-08-24] MEDS ORDERED: ZOLPIDEM TARTRATE 5 MG TAB PO PRN (15:30)
[2017-08-24] MEDS ORDERED: ALBUTEROL SULFATE 90 MCG/ACT HFA 8 GM INHALER INH PRN (15:45)
[2017-08-24] MEDS ORDERED: *morphine SULFATE 8 MG/ML PERIprocedure ONLY ONE ×3 (16:18→18:37)
[2017-08-24] MEDS: D5-LR + KCL 20 MEQ INJ 1,000 ML IV SCH ×2 (16:30→23:49)
[2017-08-24] MEDS: MORPHINE SULFATE 30 MG/30 ML PCA IV SCH (16:30)
--- NOTE | 2017-08-24 16:42 | MP ---
cc: ELBA TA M.D., JOHN T. M.D. DATE OF SURGERY 08/24/2017 PREOPERATIVE DIAGNOSIS Colon perforation. POSTOPERATIVE DIAGNOSIS Perforation of rectosigmoid. PROCEDURE Closure of rectosigmoid perforation. ANESTHESIA Endotracheal SURGEON Dr. Finn. KIER PLEATER Dr. Fulton ESTIMATED BLOOD LOSS Minimal. OPERATING TIME 1 hour and 10 minutes OPERATIVE FINDINGS This patient was referred to me by Dr. Ta. She is a patient I have known for many years. She had a perforation of her rectosigmoid junction at the time of colonoscopy approximately 3 hours to 4 hours prior to this procedure. The patient was immediately transferred to the hospital and had abdominal pain and free air on a portable chest x-ray and for this reason a laparotomy was planned. At surgery exploration of the abdominal cavity revealed that the liver was palpably normal. The gallbladder was surgically absent as was the uterus and ovaries. She had some small bowel adhesions to the anterior abdominal wall as well as a knuckle of the sigmoid stuck to the left pelvic sidewall. The perforation was just below that area right at the rectosigmoid junction on the antimesenteric border of the rectosigmoid junction. The perforation was closed transversely with a TX 60 blue staple height stapler and then reinforced with a second layer of interrupted 3-0 Vicryl sutures inverting the closure. The abdominal spillage was fairly clean. There was some cloudy liquid stool in the pelvis upon opening the abdomen and this was irrigated thoroughly and aspirated with multiple liters of saline solution, probably 4 or 5 liters throughout the case. The colotomy was identified at the rectosigmoid junction just below the sigmoid colon in a non diverticular area. It was approximately 3-4 cm in length when stretched out and closed. Dr. Fulton did a proctosigmoidoscopy examination inspecting the closure and putting air into the rectum with saline solution in the pelvis and no air leaks were found and fecal diversion was not done. OPERATIVE TECHNIQUE The patient was placed on table in the supine position. After adequate general tracheal anesthesia the legs were placed in the perineo lithotomy position and the abdomen and perineum were prepped in the usual manner. A midline incision was made from the xiphoid up to just above the umbilicus and carried down through the linea alba and the peritoneal cavity was entered with above-mentioned findings. There was a tongue of peritoneum stuck to the anterior abdominal wall on the left side which was dissected free and then there was a loop of small bowel stuck to the left anterior abdominal wall and this was dissected free with sharp dissection. A loop of terminal ileum was stuck in the pelvis on the right side and this was freed up as well. Once this was done our attention was turned to the sigmoid colon and the descending colon. It was mobilized along its peritoneal reflection. The left the right ureters were identified and protected at all times. The dissection along the left pelvic sidewall was taken down and a small loop of sigmoid colon was dissected free of that. The perforation was then seen on the antimesenteric border of the upper rectum just below the sigmoid colon and there was no diverticulosis in that area. The perforation was then picked up in each corner with Allis clamps after mobilizing the posterior rectum for a short distance and then the middle portion was brought together with an Allis clamped and then a TX 60 blue staple height stapler was used to close the colotomy transversely. After the transverse closure, Dr. Fulton then did proctosigmoidoscopy examination insufflating air into the rectum with saline solution in the pelvis, and no air leaks were identified. He was able to visualize the area of the closure and the opening was wide open with no narrowing. I then used 3-0 Vicryl sutures in a seromuscular fashion to invert the staple line closure. Once this was done the abdominal cavity was again irrigated with several liters of saline solution, aspirated dry. There were petechiae all in the pelvis and along the small bowel from the mild amount of peritoneal spillage as well as the prednisone the patient is on. Because the closure looks so good and the bowel was quite viable and pink, and she had a bowel prep prior to her colonoscopy we elected not to do diversion either with ileostomy or colostomy. A drain was placed in the retrorectal space and brought out through a separate stab wound in the right lower quadrant. The bowels were replaced in the abdominal cavity in an gold nib grinder manner. The upper small bowel which was somewhat dilated was milked back into the stomach and aspirated through the nasogastric tube. The omentum was not long enough to take down into the pelvis. The bowel was replaced in the abdominal cavity in an gold nib grinder manner as mentioned and the abdominal cavity was closed in a single layer using a double-stranded #1 PDS to close the linea alba and then subcutaneous tissue was irrigated thoroughly with a liter of saline solution and closed with interrupted skin jenn. Dressings were applied. Sponge, needle and instrument counts were reported as correct. Estimated blood loss was minimal. Operating time was 110 minutes. The patient tolerated the procedure well and left the operating room in good condition. MD LINDA Blakely/KK /4:00 PM /4:19 PM
[2017-08-24] MEDS: HYDROCORTISONE SOD SUCCINATE 100 MG VIAL IV PUSH SCH (16:45)
[2017-08-24 17:07] LABS: AUTOMATED NEUTROPHIL # 1.8 TH/MM3 (1.8-7.7); BASOPHIL % 0.1 % (0.0-2.0); EOSINOPHIL % 0.5 % (0.0-4.0); HEMATOCRIT 34.1 % (35.0-46.0); HEMO FLAGS DIFF FINAL; LYMPH % 24.1 % (9.0-44.0); LYMPHOCYTE # 0.6 TH/MM3 (1.0-4.8); MEAN CELL VOLUME 99.9 FL (80.0-100.0); MONO % 1.6 % (0.0-8.0); NEUT % 73.7 % (16.0-70.0); PLATELET COUNT 183 TH/MM3 (150-450); RED BLOOD COUNT 3.41 MIL/MM3 (4.00-5.30); RED CELL DISTRIBUTION WIDTH 14.3 % (11.6-17.2); WHITE BLOOD COUNT 2.4 TH/MM3 (4.0-11.0)
[2017-08-24 17:11] LABS: BICARBONATE 26.8 MEQ/L (21.0-32.0); POTASSIUM 4.4 MEQ/L (3.5-5.1)
[2017-08-24 17:36] LABS: CALCIUM-PROTEIN CORRECTED 8.9 MG/DL (8.5-10.1)
[2017-08-24] MEDS: METOCLOPRAMIDE HCL 10 MG/2 ML VIAL IVS SCH ×2 (18:00→23:49)
[2017-08-24] MEDS: RESP: ALBUTEROL 2.5 MG/3 ML NEB (SCH) INH ×2 (20:02→23:45)
[2017-08-24] MEDS: metroNIDAZOLE 500 MG INJ 100 ML IV SCH (20:18)
[2017-08-24] MEDS: SODIUM CHLORIDE 0.9% FLUSH 10 ML FLUSH IV FLUSH SCH (20:19)
[2017-08-24] MEDS ORDERED: [UNRECOGNIZED DRUG - OTHER] INH SCH (21:00)
[2017-08-24] MEDS ORDERED: FUROSEMIDE 20 MG/2 ML VIAL IV PUSH SCH (21:00)
[2017-08-24] MEDS: ALVIMOPAN 12 MG CAPSULE PO SCH ×2 (21:00→22:06)
[2017-08-24] MEDS: METOPROLOL TARTRATE 100 MG TAB PO SCH (21:00)
[2017-08-24] MEDS ORDERED: NON-FORMULARY DRUG (Formoterol Neb (Perforomist Neb) 1 NEBULE) INH SCH (21:00)
[2017-08-24] MEDS: PCA - TOTAL MG MORPHINE DELIVERED PER SHIFT SCH (22:00)
[2017-08-24] MEDS: PHENYTOIN SODIUM 100 MG CAP PO SCH (22:06)
[2017-08-24] MEDS: CEFEPIME INJ 2,000 MG in SODIUM CHLORIDE 0.9% INJ 100 ML IV SCH (22:07)
[2017-08-25] VITALS (28 sets, daily range): BP systolic 98–145; BP diastolic 46–59; PULSE 55–110; RESP 15–18; TEMP 97.5–98.1; O2SAT 96–98
[2017-08-25] MEDS ORDERED: SODIUM CHLORID 0.9% 500 ML INJ 500 ML IV ONE (01:00)
[2017-08-25] MEDS ORDERED: FUROSEMIDE 20 MG/2 ML VIAL IV PUSH ONE (01:45)
[2017-08-25] MEDS: RESP: ALBUTEROL 2.5 MG/3 ML NEB (SCH) INH ×5 (02:54→19:41)
[2017-08-25] MEDS: metroNIDAZOLE 500 MG INJ 100 ML IV SCH ×4 (02:55→20:02)
[2017-08-25] MEDS: HYDROCORTISONE SOD SUCCINATE 100 MG VIAL IV PUSH SCH ×2 (02:55→17:17)
[2017-08-25 05:08] LABS: AUTOMATED NEUTROPHIL # 3.9 TH/MM3 (1.8-7.7); BASOPHIL % 0.1 % (0.0-2.0); EOSINOPHIL % 0.1 % (0.0-4.0); HEMATOCRIT 33.7 % (35.0-46.0); HEMO FLAGS DIFF FINAL; LYMPH % 6.5 % (9.0-44.0); LYMPHOCYTE # 0.3 TH/MM3 (1.0-4.8); MEAN CELL VOLUME 100.2 FL (80.0-100.0); MEAN CORPUSCULAR HEMOGLOBIN 33.1 PG (27.0-34.0); MONO % 5.2 % (0.0-8.0); NEUT % 88.1 % (16.0-70.0); PLATELET COUNT 168 TH/MM3 (150-450); RED BLOOD COUNT 3.36 MIL/MM3 (4.00-5.30); WHITE BLOOD COUNT 4.4 TH/MM3 (4.0-11.0)
[2017-08-25 05:28] LABS: BICARBONATE 25.1 MEQ/L (21.0-32.0); POTASSIUM 4.9 MEQ/L (3.5-5.1)
[2017-08-25] MEDS: D5-LR + KCL 20 MEQ INJ 1,000 ML IV SCH ×3 (05:46→22:03)
[2017-08-25] MEDS: METOCLOPRAMIDE HCL 10 MG/2 ML VIAL IVS SCH ×3 (05:46→17:17)
[2017-08-25] MEDS: PCA - TOTAL MG MORPHINE DELIVERED PER SHIFT SCH ×3 (05:46→22:00)
[2017-08-25] MEDS: SPIRONOLACTONE 25 MG TAB PO SCH (08:40)
[2017-08-25] MEDS: PHENYTOIN SODIUM 100 MG CAP PO SCH ×2 (08:40→20:01)
[2017-08-25] MEDS: PRAVASTATIN SOD 20 MG TAB PO SCH (08:40)
[2017-08-25] MEDS: ALVIMOPAN 12 MG CAPSULE PO SCH ×2 (08:40→20:01)
[2017-08-25] MEDS: PANTOPRAZOLE SODIUM 40 MG VIAL IVP SCH (08:41)
[2017-08-25] MEDS: FUROSEMIDE 40 MG/4 ML VIAL IV PUSH SCH ×2 (08:41→20:02)
[2017-08-25] MEDS: LOSARTAN 50 MG TAB PO SCH (08:41)
[2017-08-25] MEDS: METOPROLOL TARTRATE 100 MG TAB PO SCH ×2 (08:42→20:01)
[2017-08-25] MEDS: SODIUM CHLORIDE 0.9% FLUSH 10 ML FLUSH IV FLUSH SCH ×2 (08:42→20:01)
[2017-08-25] MEDS ORDERED: SIMVASTATIN 10 MG PO SCH (09:00)
[2017-08-25] MEDS: CEFEPIME INJ 2,000 MG in SODIUM CHLORIDE 0.9% INJ 100 ML IV SCH ×2 (09:00→22:01)
--- NOTE | 2017-08-25 13:51 | HHI.PR ---
Subjective Remarks Looks good. Fairly comfortable. No N or V. Little N/G output. Good response to increased Lasix at 40mg Q 12hr Objective Vital Signs Date Time Temp Pulse Resp B/P (MAP) Pulse Ox O2 Delivery O2 Flow Rate FiO2 08/25/17 13:00 92 08/25/17 12:02 96 Nasal Cannula 3.00 08/25/17 12:00 88 08/25/17 11:30 97.6 86 16 108/51 (70) 96 08/25/17 11:30 96 Nasal Cannula 2.00 08/25/17 11:30 94 08/25/17 10:00 87 08/25/17 09:00 85 08/25/17 08:00 87 08/25/17 07:19 97 Nasal Cannula 2.00 08/25/17 07:19 98.0 88 18 106/52 (70) 97 08/25/17 07:19 55 08/25/17 06:00 82 08/25/17 05:46 16 08/25/17 05:00 84 08/25/17 04:00 83 08/25/17 03:00 98 Nasal Cannula 2.00 08/25/17 03:00 97.5 86 16 108/52 (70) 98 08/25/17 03:00 85 08/25/17 02:00 77 08/25/17 01:00 73 08/25/17 00:00 76 08/24/17 23:47 94 Nasal Cannula 3.00 08/24/17 23:00 97.7 75 16 105/50 (68) 96 08/24/17 23:00 72 08/24/17 23:00 96 Nasal Cannula 2.00 08/24/17 22:00 68 08/24/17 22:00 16 08/24/17 21:00 68 08/24/17 20:02 95 Nasal Cannula 3.00 08/24/17 20:00 66 08/24/17 19:20 97.7 64 15 94/45 (61) 95 08/24/17 19:20 95 Nasal Cannula 3.00 08/24/17 19:00 61 08/24/17 18:30 97.4 63 17 91/52 (65) 95 Nasal Cannula 3 08/24/17 18:15 65 20 100/58 (72) 94 08/24/17 18:00 62 19 104/47 (66) 96 08/24/17 17:45 65 22 100/54 (69) 97 08/24/17 17:30 62 20 102/45 (64) 100 08/24/17 17:30 97.8 08/24/17 17:15 61 20 101/46 (64) 100 08/24/17 17:00 68 18 104/53 (70) 100 08/24/17 16:45 61 21 110/49 (69) 100 08/24/17 16:30 70 26 96/39 (58) 99 08/24/17 16:30 20 08/24/17 16:16 100 Nasal Cannula 4.00 08/24/17 16:16 100 Nasal Cannula 4 08/24/17 16:15 69 25 108/49 (68) 100 08/24/17 16:00 63 23 106/44 (64) 100 Nasal Cannula 3 08/24/17 15:52 95.6 61 17 96/39 (58) 87 Mechanical Ventilator I/O 08/24/17 08/24/17 08/24/17 08/25/17 08/25/17 08/25/17 07:00 15:00 23:00 07:00 15:00 23:00 Intake Total 2600 ml 2278 ml 1075 ml Output Total 325 ml 395 ml Balance 2275 ml 1883 ml 1075 ml Intake IV Total 200 ml 2278 ml 1075 ml Other 2400 ml Output Urine Total 50 ml 200 ml Gastric Drainage Total 75 ml Drainage Total 125 ml 120 ml Estimated Blood Loss 150 ml # Bowel Movements 0 Result Diagram: 08/25/1739908/25/17399 Objective Remarks VS-S Abd: flat,soft,dressing dry Assessment and Plan Assessment and Plan Stable POD#1 Decrease IVs, D/C N/G. CLD. OOB Horace Finn MD Aug 25, 2017 13:51
--- NOTE | 2017-08-25 14:32 | EKG ---
Date Performed: 08/24/2017 Time Performed: 11:45:11 PTAGE: 82 years EKG: Sinus rhythm NORMAL ECG PREVIOUS TRACING : 11/02/2014 10.19 Compared to prior tracing no significant change DOCTOR: Krishna Currie Interpretating Date/Time 08/25/2017 14:25:26
[2017-08-25] MEDS: ACETAMINOPHEN/HYDROcodone 325 MG/5 MG TAB PO PRN (15:46)
[2017-08-26] VITALS (26 sets, daily range): BP systolic 101–161; BP diastolic 52–94; PULSE 77–114; RESP 16–22; TEMP 97.7–98.5; O2SAT 92–99
[2017-08-26] MEDS: RESP: ALBUTEROL 2.5 MG/3 ML NEB (SCH) INH ×3 (00:33→07:15)
[2017-08-26] MEDS: METOCLOPRAMIDE HCL 10 MG/2 ML VIAL IVS SCH ×2 (01:18→05:17)
[2017-08-26] MEDS: metroNIDAZOLE 500 MG INJ 100 ML IV SCH ×4 (01:18→21:43)
[2017-08-26] MEDS: ACETAMINOPHEN/HYDROcodone 325 MG/5 MG TAB PO PRN ×3 (01:19→09:37)
[2017-08-26] MEDS: HYDROCORTISONE SOD SUCCINATE 100 MG VIAL IV PUSH SCH ×2 (03:39→18:10)
[2017-08-26] MEDS: MORPHINE SULFATE 30 MG/30 ML PCA IV SCH (04:42)
[2017-08-26 05:16] LABS: AUTOMATED NEUTROPHIL # 6.3 TH/MM3 (1.8-7.7); BASOPHIL % 0.2 % (0.0-2.0); EOSINOPHIL % 0.1 % (0.0-4.0); HEMATOCRIT 31.4 % (35.0-46.0); HEMO FLAGS DIFF FINAL; LYMPH % 7.7 % (9.0-44.0); LYMPHOCYTE # 0.5 TH/MM3 (1.0-4.8); MEAN CORPUSCULAR HGB CONC 32.6 % (32.0-36.0); MONO % 2.6 % (0.0-8.0); NEUT % 89.4 % (16.0-70.0); PLATELET COUNT 151 TH/MM3 (150-450); RED BLOOD COUNT 3.11 MIL/MM3 (4.00-5.30); RED CELL DISTRIBUTION WIDTH 14.6 % (11.6-17.2)
[2017-08-26] MEDS: PCA - TOTAL MG MORPHINE DELIVERED PER SHIFT SCH (05:18)
[2017-08-26 05:42] LABS: BICARBONATE 27.1 MEQ/L (21.0-32.0); POTASSIUM 5.7 MEQ/L (3.5-5.1)
[2017-08-26] MEDS ORDERED: BUMETANIDE INJ 1 MG/4 ML VIAL IV PUSH ONE (07:00)
[2017-08-26] MEDS: DEXT 5%-NACL 0.45% 1000 ML INJ 1,000 ML IV SCH (08:00)
--- NOTE | 2017-08-26 08:35 | HHI.PR ---
Subjective Remarks Low urine output last PM. Given Bumex this AM with good response. IV fluid adjusted. Pt oriented and moving all extremities but seems somewhat somnolent compared to yesterday. CABLE TELEVISION TECHNICIAN stopped. Some twitching of face, may be extrapyramidal effects of Reglan. Will D/C Reglan and check Dilantin level. Objective Vital Signs Date Time Temp Pulse Resp B/P (MAP) Pulse Ox O2 Delivery O2 Flow Rate FiO2 08/26/17 07:18 98 Nasal Cannula 2.00 08/26/17 06:00 77 08/26/17 05:18 16 08/26/17 05:00 85 08/26/17 04:42 18 08/26/17 04:00 84 08/26/17 03:30 99 Nasal Cannula 2.00 08/26/17 03:30 97.9 82 16 110/58 (75) 99 08/26/17 03:00 79 08/26/17 02:00 79 08/26/17 01:00 85 08/26/17 00:00 82 08/25/17 23:25 Nasal Cannula 2.00 08/25/17 23:20 98.1 83 15 98/46 (63) 98 08/25/17 23:20 98 Nasal Cannula 3.00 08/25/17 23:00 84 08/25/17 22:00 86 08/25/17 22:00 16 08/25/17 21:00 110 08/25/17 20:00 110 08/25/17 19:47 97 Nasal Cannula 3.00 08/25/17 19:45 97.6 110 16 145/59 (87) 96 08/25/17 19:45 96 Nasal Cannula 3.00 08/25/17 19:00 106 08/25/17 18:00 88 08/25/17 17:00 92 08/25/17 16:00 88 08/25/17 15:00 97.6 86 16 108/51 (70) 96 08/25/17 15:00 100 08/25/17 15:00 98 Nasal Cannula 2.00 08/25/17 14:00 99 08/25/17 14:00 18 08/25/17 13:00 92 08/25/17 12:02 96 Nasal Cannula 3.00 08/25/17 12:00 88 08/25/17 11:30 97.6 86 16 108/51 (70) 96 08/25/17 11:30 96 Nasal Cannula 2.00 08/25/17 11:30 94 08/25/17 10:00 87 08/25/17 09:00 85 I/O 08/25/17 08/25/17 08/25/17 08/26/17 08/26/17 08/26/17 07:00 15:00 23:00 07:00 15:00 23:00 Intake Total 2278 ml 1175 ml 2485 ml 1399 ml Output Total 395 ml 730 ml 285 ml Balance 1883 ml 1175 ml 1755 ml 1114 ml Intake Oral 120 ml 240 ml IV Total 2278 ml 1175 ml 2365 ml 1159 ml Output Urine Total 200 ml 620 ml 250 ml Gastric Drainage Total 75 ml 50 ml Drainage Total 120 ml 60 ml 35 ml # Bowel Movements 0 0 0 Result Diagram: 08/26/1744208/26/17442 Objective Remarks VS-S Abd: flat,soft,dressing removed I&Os: Good U/O this AM with Bumex. Labs: K+ up. IVs adjusted Assessment and Plan Assessment and Plan Stable POD#2 Decrease IVs and K+ removed D/C Reglan Check Dilantin level D/C Spironolactone Full liquid diet OOB and consult PT for assistance Continue Horace Mckeon MD Aug 26, 2017 08:35
[2017-08-26] MEDS: ALVIMOPAN 12 MG CAPSULE PO SCH ×2 (09:36→21:43)
[2017-08-26] MEDS: PHENYTOIN SODIUM 100 MG CAP PO SCH (09:37)
[2017-08-26] MEDS: PRAVASTATIN SOD 20 MG TAB PO SCH (09:37)
[2017-08-26] MEDS: PANTOPRAZOLE SODIUM 40 MG VIAL IVP SCH (09:38)
[2017-08-26] MEDS: SODIUM CHLORIDE 0.9% FLUSH 10 ML FLUSH IV FLUSH SCH ×2 (09:38→21:44)
[2017-08-26] MEDS: CEFEPIME INJ 2,000 MG in SODIUM CHLORIDE 0.9% INJ 100 ML IV SCH (09:45)
[2017-08-26] MEDS: LOSARTAN 50 MG TAB PO SCH (09:46)
[2017-08-26] MEDS: SPIRONOLACTONE 25 MG TAB PO SCH (09:46)
[2017-08-26] MEDS: METOPROLOL TARTRATE 100 MG TAB PO SCH ×2 (09:46→21:43)
[2017-08-26] MEDS: RESP: ALBUTEROL 2.5 MG/3 ML NEB (PRN) INH (17:25)
[2017-08-26] MEDS: BUMETANIDE INJ 1 MG/4 ML VIAL IV PUSH SCH ×2 (18:09→21:43)
[2017-08-26] MEDS ORDERED: PHENYTOIN IV ONE (19:00)
[2017-08-26] MEDS ORDERED: SODIUM CHLORIDE 0.9% IV ONE (19:00)
[2017-08-26] MEDS ORDERED: HALOPERIDOL LACTATE 5 MG/ML AMP IM ONE (19:00)
[2017-08-26 19:05] LABS: BLOOD GAS BASE EXCESS -0.6 mmol/L (-2-2); BLOOD GAS CARBOXYHEMOGLOBIN 0.7 % (0-4); BLOOD GAS HCO3 25 mmol/L (22-26); BLOOD GAS METHEMOGLOBIN 1.1 % (0-2); BLOOD GAS O2 HGB SATURATION 91 % (90-100); BLOOD GAS OXYGEN CONTENT 13.7 Vol % (12.0-20.0); BLOOD GAS PCO2 50 mmHg (38-42); BLOOD GAS PO2 67 mmHg (61-120); BLOOD GAS TOTAL HGB 10.7 G/DL (12.0-16.0); TEMP CORR TO 98.6
[2017-08-26 19:06] LABS: CRITICAL VALUE NO; DRAW SITE RT RADIAL; LITER FLOW 2 L/M; NUMBER OF ARTERIAL PUNCTURES 1; OXYGEN DEVICE NASAL CANNULA; STAT NO; ULNAR PULSE PRESENT
[2017-08-26] MEDS ORDERED: HALOPERIDOL LACTATE 5 MG/ML AMP IM PRN (21:00)
--- NOTE | 2017-08-26 21:35 | RADRPT ---
EXAM DATE/TIME: 08/26/2017 20:47 [facility] COMPARISON: CT BRAIN W/O CONTRAST, November 02, 2014, 10:08. INDICATIONS : Altered mental status. Rule out bleed. RADIATION DOSE: 48.62 CTDIvol (mGy) MEDICAL HISTORY : Seizures. Cardiovascular disease Hypertension.COPD. CVA. SURGICAL HISTORY : None. ENCOUNTER: Initial ACUITY: 1 day PAIN SCALE: 0/10 LOCATION: cranial TECHNIQUE: Multiple contiguous axial images were obtained of the head. Using automated exposure control and adj ustment of the mA and/or kV according to patient size, radiation dose was kept as low as reasonably a chievable to obtain optimal diagnostic quality images. DICOM format image data is available electro nically for review and comparison. FINDINGS: CEREBRUM: There is encephalomalacia at the right occipital lobe. The ventricles are normal for age. No evidenc e of midline shift, mass lesion, hemorrhage or acute infarction. No extra-axial fluid collections ar e seen. There is a stable punctate calcification in the right frontoparietal region. POSTERIOR FOSSA: The cerebellum and brainstem are intact. The 4th ventricle is midline. The cerebellopontine angle i s unremarkable. EXTRACRANIAL: The visualized portion of the orbits is intact. SKULL: The calvaria is intact. No evidence of skull fracture. CONCLUSION: 1. No acute abnormality seen. 2. Right occipital encephalomalacia Horace Echlos MD on August 26, 2017 at 21:32 Board Certified Radiologist. This report was verified electronically.
[2017-08-26] MEDS: HEPARIN SODIUM - SQ 10,000 UNITS/ML VIAL SQ SCH (21:45)
[2017-08-27] VITALS (30 sets, daily range): BP systolic 125–172; BP diastolic 59–83; PULSE 74–114; RESP 18–23; TEMP 97–98.4; O2SAT 94–100
[2017-08-27] MEDS: metroNIDAZOLE 500 MG INJ 100 ML IV SCH ×4 (01:24→22:19)
[2017-08-27] MEDS: RESP: ALBUTEROL 2.5 MG/3 ML NEB (PRN) INH ×2 (04:58→10:57)
--- NOTE | 2017-08-27 05:25 | MB ---
cc: GLORIA VILLARREAL M.D. DATE OF CONSULTATION 08/26/2017 REASON FOR CONSULTATION She is an 82-year-old woman seen in neurological consultation in regards to acute confusional state. HISTORY OF PRESENT ILLNESS She was admitted on the for perforation of the sigmoid colon and she had surgery. Today is postop day #2. She was treated with [employer] pump and Lortab and these were discontinued due to her confusional state. It appears that she did not have confusion or altered mentation before but she has a history of a stroke and also seizures. She had a stroke, apparently caused seizures and the chart indicates she lost vision on her left side from the stroke. She had been on aspirin and Plavix until she had some GI bleeding earlier this year and these medications were stopped. She has been on Dilantin apparently 100 mg twice a day for the seizures. She was awake and somewhat obtunded, obviously confused. She mentioned Dr. Finn, repeatedly addressed me as if I were Dr. Finn. She also would be saying repeatedly something like, "I cannot do it", etc. She was trying to sit up in bed and when I held her hand she was pull me trying to sit up and was obviously just quite confused. NEUROLOGICAL EXAMINATION She denied pain specifically on multiple occasions. She would not respond to a lot of simple questions such as place, her age. She did verbalize without any obvious aphasia and she seemed to be moving all four extremities grossly equally. Pupils were relatively large and at least mildly reactive. I am unsure about visual field exam. There is no obvious facial weakness. The reflexes were diminished throughout and plantar responses were flexor bilaterally. NECK: Supple. VITAL SIGNS: Today her temperature was normal orally. Pulse is in the mid-90s and blood pressure normal. LABORATORY DATA White count today 7.0, hemoglobin 10.2 and platelets 151. Chemistry includes sodium of 142, potassium high at 5.7, BUN 34, creatinine 2.0, glucose 136, calcium 7.7. On the she had normal ALT and AST and BUN and creatinine were 25 and 1.16 respectively. Phenytoin level today 6.5. ASSESSMENT AND PLAN Acute delirium. This is probably multifactorial including dehydration, painkiller medications, perioperative status. The possibility of a seizure is a consideration, though I doubt that. Nonetheless, as her Dilantin level is low, I am giving her Dilantin 500 mg intravenous now and we will follow the lab in the morning. We will plan on doing an EEG. We will obtain a CT brain for completeness to rule out an acute ischemic stroke, subdural, etc.. I will give her one dose of Haldol to see if this will help her settled down her agitation, may repeat this 1 mg dose in a couple of hours as I discussed with the nursing staff but we want to avoid more central nervous system medications if at all possible. I will follow the neurological course. Thank you for asking us to assist in her care. MD JUDSON Mullins/SSB /7:48 PM /5:18 AM
[2017-08-27 05:32] LABS: BASOPHIL % 0.1 % (0.0-2.0); HEMATOCRIT 32.6 % (35.0-46.0); HEMO FLAGS DIFF FINAL; LYMPH % 5.1 % (9.0-44.0); LYMPHOCYTE # 0.5 TH/MM3 (1.0-4.8); MEAN CELL VOLUME 98.1 FL (80.0-100.0); MEAN CORPUSCULAR HEMOGLOBIN 32.2 PG (27.0-34.0); MEAN CORPUSCULAR HGB CONC 32.9 % (32.0-36.0); MONO % 1.7 % (0.0-8.0); NEUT % 93.1 % (16.0-70.0); PLATELET COUNT 184 TH/MM3 (150-450); RED BLOOD COUNT 3.32 MIL/MM3 (4.00-5.30); RED CELL DISTRIBUTION WIDTH 14.2 % (11.6-17.2); WHITE BLOOD COUNT 9.6 TH/MM3 (4.0-11.0)
[2017-08-27] MEDS: DEXT 5%-NACL 0.45% 1000 ML INJ 1,000 ML IV SCH (05:34)
[2017-08-27] MEDS: HYDROCORTISONE SOD SUCCINATE 100 MG VIAL IV PUSH SCH ×2 (05:36→16:43)
[2017-08-27 06:06] LABS: BICARBONATE 27.9 MEQ/L (21.0-32.0); POTASSIUM 3.8 MEQ/L (3.5-5.1)
[2017-08-27] MEDS: BUMETANIDE INJ 1 MG/4 ML VIAL IV PUSH SCH ×2 (08:23→22:47)
[2017-08-27] MEDS: PANTOPRAZOLE SODIUM 40 MG VIAL IVP SCH (08:23)
[2017-08-27] MEDS: HEPARIN SODIUM - SQ 10,000 UNITS/ML VIAL SQ SCH ×2 (08:23→22:18)
[2017-08-27] MEDS: SODIUM CHLORIDE 0.9% FLUSH 10 ML FLUSH IV FLUSH SCH ×2 (08:49→22:19)
[2017-08-27] MEDS: CEFEPIME INJ 2,000 MG in SODIUM CHLORIDE 0.9% INJ 100 ML IV SCH (08:49)
[2017-08-27] MEDS: PHENYTOIN SODIUM 100 MG CAP PO SCH ×2 (08:53→22:16)
[2017-08-27] MEDS: HALOPERIDOL LACTATE 5 MG/ML AMP IM PRN ×3 (08:53→22:17)
[2017-08-27] MEDS: ALVIMOPAN 12 MG CAPSULE PO SCH ×2 (09:00→22:16)
[2017-08-27] MEDS: LOSARTAN 50 MG TAB PO SCH (09:00)
[2017-08-27] MEDS: PRAVASTATIN SOD 20 MG TAB PO SCH (09:00)
[2017-08-27] MEDS: SPIRONOLACTONE 25 MG TAB PO SCH (09:00)
[2017-08-27] MEDS: METOPROLOL TARTRATE 100 MG TAB PO SCH ×2 (09:01→22:16)
[2017-08-27 09:13] LABS: BLOOD GAS BASE EXCESS 0.5 mmol/L (-2-2); BLOOD GAS CARBOXYHEMOGLOBIN 0.8 % (0-4); BLOOD GAS HCO3 26 mmol/L (22-26); BLOOD GAS O2 HGB SATURATION 93 % (90-100); BLOOD GAS OXYGEN CONTENT 13.5 Vol % (12.0-20.0); BLOOD GAS PCO2 52 mmHg (38-42); BLOOD GAS PO2 76 mmHg (61-120); BLOOD GAS TOTAL HGB 10.3 G/DL (12.0-16.0); TEMP CORR TO 98.6
[2017-08-27 09:19] LABS: CRITICAL VALUE YES; LITER FLOW 3 L/M; OXYGEN DEVICE Y
[2017-08-27 09:20] LABS: DRAW SITE LT RADIAL; NUMBER OF ARTERIAL PUNCTURES 1; STAT YES; ULNAR PULSE PRESENT
--- NOTE | 2017-08-27 16:09 | RADRPT ---
EXAM DATE/TIME: 08/27/2017 15:55 [facility] COMPARISON: CHEST SINGLE AP, August 24, 2017, 11:53. INDICATIONS : Infiltrate. MEDICAL HISTORY : None. SURGICAL HISTORY : None. ENCOUNTER: Initial ACUITY: 3 days PAIN SCORE: Non-responsive. LOCATION: Bilateral chest FINDINGS: The free air which was seen beneath the hemidiaphragm has resolved. There is minimal basilar effusion on the right and minimal atelectatic changes at the right base. The lungs are otherwise clear. The heart is normal in size. The bony structures are intact. CONCLUSION: 1. Minimal basilar effusion on the right with small area of atelectasis. The lungs are otherwise laina r. Hilario Joyner MD on August 27, 2017 at 16:07 Board Certified Radiologist. This report was verified electronically.
--- NOTE | 2017-08-27 16:46 | RADRPT ---
EXAM DATE/TIME: 08/27/2017 15:22 [facility] COMPARISON: CHEST PA & LAT, August 27, 2017, 15:55. INDICATIONS : Short of breath. DOSE: 8.7 mCi Tc99m MAA IV 0.67 mCi Tc99m DTPA aerosol MEDICAL HISTORY : Chronic obstructive pulmonary disease. Myocardial infarction. Stroke. SURGICAL HISTORY : Hysterectomy. Cholecystectomy. ENCOUNTER: Initial ACUITY: 1 day PAIN SCALE: 3/10 LOCATION: Bilateral chest TECHNIQUE: Following five minutes of tidal breathing of DTPA aerosol, planar images of the lungs were performed in eight projections. The patient was then injected with MAA, and eight-view perfusion scan was perf ormed. FINDINGS: There is a portable liver in aerosol to the lungs suggesting COPD. There are multiple ventilatory def ects. The perfusion lung scan demonstrates a heterogeneous pattern of uptake with multiple segmental and cortez bsegmental defects. These are matched when compared to the ventilatory portion of the exam. The chest x-ray demonstrates a mild COPD changes but is otherwise unremarkable. CONCLUSION: 1. There are multiple matched ventilatory and perfusion defects aerated the chest x-ray is fairly nor mal appearance. By criteria this would be low probability. It should be noted, a low probability stil l carries a 30% possible a pulmonary embolus. Hilario Joyner MD on August 27, 2017 at 16:36 Board Certified Radiologist. This report was verified electronically.
--- NOTE | 2017-08-27 16:53 | HHI.PR ---
Subjective Remarks Pt became progressively more confused and combative yesterday and last night. Dilantin level was sub therapeutic. Seen by Dr Maude Mckenna. Dilantin increased. More comfortable with Haldol. Ammonia normal. Mild acute respiratory acidosis last PM and this AM. Dr Dubose consulted for recommendations. CTA cannot be done due to mild post op renal insufficiency. Stable at present with good ongoing diuresis. CxR OK. Some atelectasis. No CHF. VQwith matched VQ abnormalities-Moderate probability. Objective Vital Signs Date Time Temp Pulse Resp B/P (MAP) Pulse Ox O2 Delivery O2 Flow Rate FiO2 08/27/17 16:37 97.0 91 18 163/71 (101) 98 08/27/17 14:25 83 08/27/17 13:00 90 08/27/17 12:00 74 08/27/17 11:15 97 Nasal Cannula 3.00 08/27/17 11:05 97.4 89 18 164/70 (101) 96 08/27/17 11:00 102 08/27/17 10:57 97 Nasal Cannula 3.00 08/27/17 10:00 80 08/27/17 09:00 98 08/27/17 08:17 95 Nasal Cannula 3.00 08/27/17 08:11 98.1 95 18 125/83 (97) 95 08/27/17 08:00 112 08/27/17 07:00 89 08/27/17 06:00 90 08/27/17 05:02 100 Nasal Cannula 2.00 08/27/17 05:00 84 08/27/17 04:00 97.4 90 23 125/59 (81) 96 08/27/17 04:00 114 08/27/17 04:00 95 Nasal Cannula 2.03 08/27/17 03:00 96 08/27/17 02:00 114 08/27/17 01:00 90 08/27/17 00:00 95 Nasal Cannula 2.03 08/27/17 00:00 98.0 114 21 159/71 (100) 97 08/27/17 00:00 114 08/26/17 23:00 100 08/26/17 22:00 114 08/26/17 20:00 98.5 98 22 161/71 (101) 99 08/26/17 20:00 98 08/26/17 20:00 96 Nasal Cannula 2.00 08/26/17 18:00 98 08/26/17 17:25 92 Nasal Cannula 2.00 08/26/17 17:00 96 I/O 08/26/17 08/26/17 08/26/17 08/27/17 08/27/17 08/27/17 07:00 15:00 23:00 07:00 15:00 23:00 Intake Total 1399 ml 281 ml 1065 ml 741 ml Output Total 285 ml 1000 ml 2040 ml Balance 1114 ml 281 ml 65 ml -1299 ml Intake Oral 240 ml 140 ml IV Total 1159 ml 281 ml 1065 ml 601 ml Output Urine Total 250 ml 1000 ml 2000 ml Drainage Total 35 ml 40 ml # Bowel Movements 0 Result Diagram: 08/27/1710 08/27/17 0510 Objective Remarks VS-S Abd: flat,soft,wound clean I&Os: Continued good U/O with Bumex. Labs: IVs adjusted Assessment and Plan Assessment and Plan Stable POD#3 Check Dilantin level OOB and consult PT for assistance Continue alex Soft diet D/W Dr Gutiérrez to fully anti coagulate until CTA can be done in next 1-2 days Horace Finn MD Aug 27, 2017 16:53
[2017-08-27] MEDS: RESP: ALBUTEROL 2.5 MG/IPRATROPIUM 0.5 MG NEB (SCH) NEB ×2 (17:36→21:20)
[2017-08-27] MEDS: D5-LR + KCL 20 MEQ INJ 1,000 ML IV SCH (18:40)
--- NOTE | 2017-08-27 20:11 | MB ---
cc: Eden DURAN M.D. DATE OF CONSULTATION 08/27/17 REASON FOR CONSULTATION Chronic obstructive pulmonary disease and hypercapnia. HISTORY OF PRESENT ILLNESS This is an 82-year-old white female who had undergone a GI endoscopy and colonoscopy on 08/24. Apparently, had suffered a perforated ulcerated sigmoid colon while undergoing colonoscopy. The patient was brought in to [facility] from [place] and underwent exploratory laparotomy and repair of the perforation and has been in the ICU on oxygen and also on antibiotic therapy including cefepime. The patient was doing well for 48 hours, but early this morning was noted to have some altered mental status, some lethargy and some shortness of breath as well. He did not offer any complaints. A blood gas study was done which demonstrated a pH of 7.32 and pCO2 of 50, PO2 of 67. The patient has been on 2-3 liters O2 via nasal cannula. She has been diuresing well with IV Bumex and she was mildly short of breath and denied any chest pains but has had some abdominal discomfort. PAST MEDICAL HISTORY 1. Polyp removed by colonoscopy more than three years ago. 2. History of COPD 3. History of smoking 4. Prior history of a CVA 5. History for seizures. 6. Hysterectomy in the past. 7. There is no history of diabetes but has had mild hypertension. HABITS The patient smokes half to one-pack per day for more than 20 years. No significant alcohol use. FAMILY HISTORY Essentially noncontributory ALLERGIES None were listed. REVIEW OF SYSTEMS The patient is unable to provide any details. She seems somewhat lethargic and mildly disoriented. PHYSICAL EXAMINATION GENERAL: This is an averagely built elderly lady who is pale and mildly dyspneic at rest. VITAL SIGNS: Blood pressure 128/70, pulse is 85, respirations 20, temperature 97.2 HEENT: Head normocephalic. Pupils reactive and equal. Tongue was dry. Throat is injected. Nasal mucosa is clear. NECK: Supple without venous distension. Trachea midline. No thyroid enlargement. CHEST: Distant breath sounds. Occasional wheezes in the upper lung bedoya. No crackles on either side. HEART: Regular S1 and S2 with no murmur. No S3. ABDOMEN: Slightly distended with tenderness in the lower abdomen. Bowel sounds are faint. No organomegaly. EXTREMITIES: Varicosities, no edema. No calf tenderness. NEUROLOGIC: Reflexes are 1+ with no gross motor deficits. She does move all her extremities well. The patient however, is lethargic and slightly disoriented. IMPRESSION 1. COPD with chronic bronchitis 2. Hypercapnia and hypoxemia. 3. Status post exploratory laparotomy and repair of perforated colon and sigmoid resection 4. History of seizures 5. Altered mental status 6. Rule out pulmonary emboli. PLAN The patient has been placed on O2 at three liters, nebulized DuoNeb solution added q.i.d. Incentive spirometry every three hours. We will also add Solu-Medrol 40 mg IV t.i.d. a VQ lung scan will be obtained to rule out pulmonary embolism and a Doppler study of the leg veins. The patient will be given IV fluids for hydration and followup electrolytes and blood gases to be done as well as a chest x-ray today. Prophylactic heparin will be continued as ordered. If there is evidence of pulmonary emboli, we may need to go to full dose heparin. I will discuss case with you, Dr. Finn. Thanks for this consultation. MD YASH Lynch/ /5:57 PM /8:00 PM
--- NOTE | 2017-08-27 21:23 | MG ---
cc: TIA LEVI Lab No: [id number] Date: 08/27/17 Age: Sex: F Race: Haldol given, agitated. eyes open for most of the EEGs. There is what appears to be triphasic waves seen bifrontally at the beginning of the recording. Eyebrows twitching is noted which correlates with muscle artifact bifrontally, bifrontal sharply contoured waves are seen which is probably more triphasic than epileptiform. Hyperventilation not performed. More eyebrow twitching is noted but appears to be just movement artifact there. Photic stimulation was performed without significant change in the background or posterior driving. IMPRESSION The eyebrow twitching is not caused by seizure activity, but she appears to have a significant metabolic encephalopathy with triphasic waves. Limitation of sedation is recommended. Cause for metabolic encephalopathy should be investigated. Clinical correlation is needed. MD RUBÉN Caruso/ /9:00 PM /9:21 PM
[2017-08-27] MEDS: BUDESONIDE-FORMOTEROL 160/4.5 MCG INHALER INH SCH (22:13)
[2017-08-27] MEDS: methylPREDNISolone SOD SUCC 40 MG/1 ML VIAL IV SCH (22:15)
--- NOTE | 2017-08-27 22:32 | RADRPT ---
EXAM DATE/TIME: 08/27/2017 21:43 [facility] COMPARISON: No previous studies available for comparison. INDICATIONS : Bilateral leg swelling. MEDICAL HISTORY : Chronic obstructive pulmonary disease. Gastroesophageal reflux disease. Hypercholesterolemia. Hearing loss. Cerebrovascular accident. Seizures. HI. Anticoagulant therapy. Afib. Hypertension. Kidney ston es. Arthritis. Measles. SURGICAL HISTORY : Cholecystectomy.Appendectomy. Hysterectomy.Breast biopsy. Exploratory laparotomy. ENCOUNTER: Initial ACUITY: 1 day PAIN SCORE: 0/10 LOCATION: Bilateral legs. TECHNIQUE: Venous ultrasound of the left and right leg was performed from the inguinal ligament to the proximal calf. Real-time, color Doppler and spectral tracing, compression and augmentation techniques were us ed. FINDINGS: RIGHT LEG: There is occlusive thrombus in the inferior right femoral and popliteal veins. There is flow seen in the right common femoral, upper and mid femoral vein, greater saphenous, and peroneal veins. LEFT LEG: There is normal compressibility of the deep venous system from the inguinal region to the proximal ca lf. No echogenic clot is seen in the lumen of the common femoral, femoral, popliteal, and posterior tibial veins. There is a normal response of the venous system to proximal and distal augmentation an d respiration. CONCLUSION: Thrombus involving the inferior right official femoral vein and popliteal veins. No thrombus is seen on the left side. Horace Echols MD on August 27, 2017 at 22:28 Board Certified Radiologist. This report was verified electronically.
[2017-08-28] VITALS (31 sets, daily range): BP systolic 146–188; BP diastolic 66–81; PULSE 75–108; RESP 19–22; TEMP 98.3–98.7; O2SAT 94–98
[2017-08-28] MEDS: metroNIDAZOLE 500 MG INJ 100 ML IV SCH ×4 (03:06→22:22)
[2017-08-28] MEDS: methylPREDNISolone SOD SUCC 40 MG/1 ML VIAL IV SCH ×3 (03:06→22:21)
[2017-08-28] MEDS: HALOPERIDOL LACTATE 5 MG/ML AMP IM PRN ×4 (03:06→19:54)
[2017-08-28 05:13] LABS: AUTOMATED NEUTROPHIL # 8.5 TH/MM3 (1.8-7.7); HEMATOCRIT 32.1 % (35.0-46.0); HEMO FLAGS DIFF FINAL; LYMPH % 4.2 % (9.0-44.0); LYMPHOCYTE # 0.4 TH/MM3 (1.0-4.8); MEAN CELL VOLUME 97.4 FL (80.0-100.0); MEAN CORPUSCULAR HEMOGLOBIN 32.5 PG (27.0-34.0); MEAN CORPUSCULAR HGB CONC 33.4 % (32.0-36.0); MONO % 2.3 % (0.0-8.0); NEUT % 93.5 % (16.0-70.0); PLATELET COUNT 185 TH/MM3 (150-450); RED CELL DISTRIBUTION WIDTH 14.1 % (11.6-17.2); WHITE BLOOD COUNT 9.1 TH/MM3 (4.0-11.0)
[2017-08-28 05:15] LABS: BICARBONATE 30.5 MEQ/L (21.0-32.0); POTASSIUM 3.3 MEQ/L (3.5-5.1)
--- NOTE | 2017-08-28 07:34 | HHI.PR ---
Review/Management Daily Summary 08/28 when I came yesterday evening she was having imaging studies, spoke to her daughter yest spoke to staff yest and today eeg results seen dilantin level repeat 16 the eyebrown twitching is improved she is lethargic but follows commands, moves 4 limbs neuro christina ok to treat DVT with anticoagulation increase dilantin to 100 tid check amonia and lft's suspect all metabolic encephalopathy from multiple medical issues, renal impairment neuro available prn Subjective Subjective Comments No seizures Active Medications Current Medications Medications (Trade) Dose Ordered Sig/Tamir Route Start Time Stop Time Status Last Admin (NS Flush) 2 ml UNSCH PRN IV FLUSH 08/24/17 15:30 (NS Flush) 2 ml BID IV FLUSH 08/24/17 21:00 08/27/17 22:19 (Debary 5-325 Mg) 1 tab Q4H PRN PO 08/24/17 15:30 Future Hold 08/26/17 09:37 (Debary 5-325 Mg) 2 tab Q4H PRN PO 08/24/17 15:30 Future Hold 08/25/17 20:01 (Entereg) 12 mg BID PO 08/24/17 20:00 08/30/17 21:01 08/27/17 22:16 (Protonix Inj) 40 mg DAILY IVP 08/25/17 09:00 08/27/17 08:23 (Zofran Inj) 4 mg Q6H PRN IV PUSH 08/24/17 15:30 08/25/17 20:14 (Vasotec Inj) 1.25 mg Q4H PRN IV PUSH 08/24/17 15:30 (Chloraseptic Celestine) 1 lozenge UNSCH PRN BUCCAL 08/24/17 15:30 Potassium Chloride 100 ml @ 50 mls/hr UNSCH PRN IV 08/24/17 15:30 Potassium Chloride 100 ml @ 25 mls/hr UNSCH PRN IV 08/24/17 15:30 (Proair Hfa Inh) 2 puff Q6HR PRN INH 08/24/17 15:45 (Cozaar) 100 mg DAILY PO 08/25/17 09:00 08/27/17 09:00 (Lopressor) 100 mg BID PO 08/24/17 21:00 08/27/17 22:16 (Aldactone) 25 mg DAILY PO 08/25/17 09:00 08/27/17 09:00 Metronidazole 100 ml @ 100 mls/hr Q6H IV 08/24/17 20:00 08/28/17 03:06 Patient Own Medication PT OWN MED: PERFORM... BID INH 08/24/17 21:00 Future Hold (Pravachol) 20 mg DAILY PO 08/25/17 09:00 08/27/17 09:00 (Albuterol Neb) 2.5 mg Q6HR NEB PRN INH 08/26/17 10:30 08/27/17 10:57 Cefepime HCl 2000 mg/Sodium Chloride 100 ml @ 200 mls/hr Q24H IV 08/27/17 09:00 08/27/17 08:49 (Heparin Inj) 5,000 units Q12H SQ 08/26/17 20:00 08/27/17 22:18 (Haldol Inj) 1 mg Q4H PRN IM 08/27/17 08:15 08/28/17 03:06 (Dilantin) 100 mg BID PO 08/27/17 09:00 08/27/17 22:16 (Duoneb Neb) 1 ampule QID NEB NEB 08/27/17 16:00 08/27/17 21:20 Potassium Cl/ Dextrose/Lact Ringer's 1,000 ml @ 75 mls/hr [id number] IV 08/27/17 17:00 08/27/17 18:40 (SoluMEDROL INJ) 40 mg Q8H IV 08/27/17 20:00 08/28/17 03:06 (Symbicort 160-4.5 Inh) 2 puff Q12HR INH 08/27/17 21:00 08/27/17 22:13 (Bumex Inj) 1 mg Q12HR IV PUSH 08/27/17 21:45 08/27/17 22:47 Allergies Allergies Coded Allergies amlodipine (Unverified Allergy, Severe, SWELLING, 08/24/17) azithromycin (Unverified Allergy, Severe, "MYCINS"-HIVES, 08/24/17) ciprofloxacin (Unverified Allergy, Severe, Rash, 08/24/17) diltiazem (Unverified Allergy, Severe, 08/24/17) duloxetine (Unverified Allergy, Severe, Confusion, 08/24/17) erythromycin base (Unverified Allergy, Severe, "MYCINS"-HIVES, 08/24/17) hydrochlorothiazide (Unverified Allergy, Severe, 08/24/17) pentazocine (Unverified Allergy, Severe, CRAZY, 08/24/17) triamterene (Unverified Allergy, Severe, 08/24/17) gabapentin (Unverified Allergy, Unknown, 08/24/17) Exam I&O / VS Vital Signs Date Time Temp Pulse Resp B/P (MAP) Pulse Ox O2 Delivery O2 Flow Rate FiO2 08/28/17 06:02 97 08/28/17 05:01 90 08/28/17 04:00 89 08/28/17 03:10 98 Nasal Cannula 3.00 08/28/17 03:00 98.3 82 20 165/72 (103) 98 08/28/17 03:00 83 08/28/17 02:11 90 08/28/17 01:00 85 08/28/17 00:00 84 08/27/17 23:53 97.7 106 22 172/72 (105) 96 08/27/17 23:53 96 Nasal Cannula 3.00 08/27/17 23:00 81 08/27/17 22:00 100 08/27/17 21:20 95 Nasal Cannula 3.00 08/27/17 21:00 104 08/27/17 20:00 106 08/27/17 19:30 98.4 106 18 164/70 (101) 94 08/27/17 19:30 94 Nasal Cannula 3.00 08/27/17 19:00 94 08/27/17 18:00 90 08/27/17 17:00 86 08/27/17 17:00 88 08/27/17 16:37 97.0 91 18 163/71 (101) 98 08/27/17 16:37 98 Nasal Cannula 3.00 08/27/17 14:25 83 08/27/17 13:00 90 08/27/17 12:00 74 08/27/17 11:15 97 Nasal Cannula 3.00 08/27/17 11:05 97.4 89 18 164/70 (101) 96 08/27/17 11:00 102 11/16/17 10:57 97 Nasal Cannula 3.00 08/27/17 10:00 80 08/27/17 09:00 98 08/27/17 08:17 95 Nasal Cannula 3.00 08/27/17 08:11 98.1 95 18 125/83 (97) 95 08/27/17 08:00 112 Objective Radiology Results Last 48 hours Impressions Lung Scan-VQ Nuclear Medicine 08/27/17 0000 Signed Impressions: Service Date/Time: August 15:22 - CONCLUSION: 1. There are multiple matched ventilatory and perfusion defects aerated the chest x-ray is fairly normal appearance. By criteria this would be low probability. It should be noted, a low probability still carries a 30%% possible a pulmonary embolus. Hilario Joyner MD Lower Extremity Ultrasound 08/27/17 0000 Signed Impressions: Service Date/Time: August 21:43 - CONCLUSION: Thrombus involving the inferior right official femoral vein and popliteal veins. No thrombus is seen on the left side. Horace Echols MD Chest X-Ray 08/27/17 0000 Signed Impressions: Service Date/Time: August 15:55 - CONCLUSION: 1. Minimal basilar effusion on the right with small area of atelectasis. The lungs are otherwise clear. Hilario Joyner MD Micro and Labs Laboratory Tests Test 08/27/17 09:08 08/27/17 13:30 08/28/17 04:20 Blood Gas Puncture Site LT RADIAL Blood Gas Patient Temperature 98.6 Blood Gas HCO3 26 Blood Gas Base Excess 0.5 Blood Gas Oxygen Saturation 93 Arterial Blood pH 7.32 Arterial Blood Partial Pressure CO2 52 Arterial Blood Partial Pressure O2 76 Arterial Blood Oxygen Content 13.5 Arterial Blood Carboxyhemoglobin 0.8 Arterial Blood Methemoglobin 1.0 Blood Gas Hemoglobin 10.3 Oxygen Delivery Device Y Blood Gas Liter Flow 3 Ammonia LESS THAN 10 White Blood Count 9.1 Red Blood Count 3.30 Hemoglobin 10.7 Hematocrit 32.1 Mean Corpuscular Volume 97.4 Mean Corpuscular Hemoglobin 32.5 Mean Corpuscular Hemoglobin Concent 33.4 Red Cell Distribution Width 14.1 Platelet Count 185 Mean Platelet Volume 9.1 Neutrophils (%) (Auto) 93.5 Lymphocytes (%) (Auto) 4.2 Monocytes (%) (Auto) 2.3 Eosinophils (%) (Auto) 0.0 Basophils (%) (Auto) 0.0 Neutrophils # (Auto) 8.5 Lymphocytes # (Auto) 0.4 Monocytes # (Auto) 0.2 Eosinophils # (Auto) 0.0 Basophils # (Auto) 0.0 CBC Comment DIFF FINAL Differential Comment Blood Urea Nitrogen 36 Creatinine 1.83 Random Glucose 160 Calcium Level 8.6 Sodium Level 146 Potassium Level 3.3 Chloride Level 107 Carbon Dioxide Level 30.5 Anion Gap 9 Estimat Glomerular Filtration Rate 27 Lamine Mckenna MD Aug 28, 2017 07:34
[2017-08-28] MEDS: RESP: ALBUTEROL 2.5 MG/IPRATROPIUM 0.5 MG NEB (SCH) NEB ×4 (07:48→19:51)
--- NOTE | 2017-08-28 08:08 | HHI.PR ---
Subjective . More calm this AM. No focal neuro signs. Objective . VS-S Respiratory: comfortable Abd: flat,soft,wound clean Assessment/Plan . Stable POD#4. Improved Renal and neurologic. Apparently has DVT Plan: Cont IVs,Bumex and Regular diet. Asked RNs to call Dr Dubose re treatment of DVT Horace Finn MD Aug 28, 2017 08:08
[2017-08-28] MEDS: PANTOPRAZOLE SODIUM 40 MG VIAL IVP SCH (08:35)
[2017-08-28] MEDS: METOPROLOL TARTRATE 100 MG TAB PO SCH ×2 (08:36→22:20)
[2017-08-28] MEDS: PRAVASTATIN SOD 20 MG TAB PO SCH (08:36)
[2017-08-28] MEDS: SPIRONOLACTONE 25 MG TAB PO SCH (08:36)
[2017-08-28] MEDS: BUDESONIDE-FORMOTEROL 160/4.5 MCG INHALER INH SCH (08:36)
[2017-08-28] MEDS: PHENYTOIN SODIUM 100 MG CAP PO SCH ×3 (08:36→17:34)
[2017-08-28] MEDS: BUMETANIDE INJ 1 MG/4 ML VIAL IV PUSH SCH ×2 (08:36→22:20)
[2017-08-28] MEDS: LOSARTAN 50 MG TAB PO SCH (08:37)
[2017-08-28] MEDS: SODIUM CHLORIDE 0.9% FLUSH 10 ML FLUSH IV FLUSH SCH ×2 (08:37→19:54)
[2017-08-28] MEDS: ALVIMOPAN 12 MG CAPSULE PO SCH ×2 (09:59→22:21)
[2017-08-28] MEDS: CEFEPIME INJ 2,000 MG in SODIUM CHLORIDE 0.9% INJ 100 ML IV SCH (09:59)
[2017-08-28] MEDS: ENOXAPARIN SODIUM 60 MG/0.6 ML SYRINGE SQ SCH (10:00)
[2017-08-28 10:06] LABS: INDIRECT BILIRUBIN 0.2 MG/DL (0.0-0.8); TOTAL BILIRUBIN ADULT 0.4 MG/DL (0.2-1.0)
[2017-08-28] MEDS: D5-LR + KCL 20 MEQ INJ 1,000 ML IV SCH ×2 (13:43→19:40)
--- NOTE | 2017-08-28 18:48 | HHI.PR ---
Subjective Remarks More alert and No SOB . On O2 2 L. Has DVT on Venous doppler. Objective Vital Signs Date Time Temp Pulse Resp B/P (MAP) Pulse Ox O2 Delivery O2 Flow Rate FiO2 08/28/17 18:00 95 08/28/17 17:00 77 08/28/17 16:00 101 08/28/17 15:23 98.3 96 20 173/79 (110) 97 08/28/17 15:23 97 Nasal Cannula 3.00 08/28/17 15:00 95 08/28/17 14:00 94 08/28/17 13:00 89 08/28/17 12:00 92 08/28/17 11:26 98 Nasal Cannula 3.00 08/28/17 11:26 98.7 78 20 160/70 (100) 98 08/28/17 11:00 83 08/28/17 10:00 86 08/28/17 09:00 96 08/28/17 08:00 92 08/28/17 07:50 98 Nasal Cannula 3.00 08/28/17 07:15 98.5 86 20 188/81 (116) 98 08/28/17 07:15 98 Nasal Cannula 3.00 08/28/17 07:00 92 08/28/17 06:02 97 08/28/17 05:01 90 08/28/17 04:00 89 08/28/17 03:10 98 Nasal Cannula 3.00 08/28/17 03:00 98.3 82 20 165/72 (103) 98 08/28/17 03:00 83 08/28/17 02:11 90 08/28/17 01:00 85 08/28/17 00:00 84 08/27/17 23:53 97.7 106 22 172/72 (105) 96 08/27/17 23:53 96 Nasal Cannula 3.00 08/27/17 23:00 81 08/27/17 22:00 100 08/27/17 21:20 95 Nasal Cannula 3.00 08/27/17 21:00 104 08/27/17 20:00 106 08/27/17 19:30 98.4 106 18 164/70 (101) 94 08/27/17 19:30 94 Nasal Cannula 3.00 08/27/17 19:00 94 I/O 11/16/17 1108/27/17 08/28/17 08/28/17 08/28/17 07:00 15:00 23:00 07:00 15:00 23:00 Intake Total 741 ml 250 ml 420 ml 1799 ml Output Total 2040 ml 1000 ml 1950 ml 1730 ml Balance -1299 ml -750 ml -1530 ml 69 ml Intake Oral 140 ml 250 ml 420 ml 720 ml IV Total 601 ml 1079 ml Output Urine Total 2000 ml 950 ml 1900 ml 1700 ml Drainage Total 40 ml 50 ml 50 ml 30 ml Result Diagram: 08/28/17 04208/28/17 042 Other Results GENERAL: This is an averagely built elderly lady who is pale and mildly dyspneic at rest. HEENT: Head normocephalic. Pupils reactive and equal. Tongue was dry. Throat is injected. Nasal mucosa is clear. NECK: Supple without venous distension. Trachea midline. No thyroid enlargement. CHEST: Distant breath sounds. Occasional wheezes in the upper lung bedoya. No crackles on either side. HEART: Regular S1 and S2 with no murmur. No S3. ABDOMEN: Slightly distended with tenderness in the lower abdomen. Bowel sounds are faint. No organomegaly.Midline wound and [place]. EXTREMITIES: Varicosities, no edema. No calf tenderness. NEUROLOGIC: Reflexes are 1+ with no gross motor deficits. She does move all her extremities well. The patient however, is lethargic and slightly disoriented. Assessment and Plan Assessment and Plan IMPRESSION 1. COPD with chronic bronchitis 2. Hypercapnia and hypoxemia. 3. Status post exploratory laparotomy and repair of perforated colon and sigmoid resection 4. History of seizures 5. Altered mental status 6. Rule out pulmonary emboli. 7. DVT. Plan : 1. Lovenox 1 mg /KG Q12H 2. O2 at 3L 3. Nebs qid Duoneb. 4. Taper solumedrol to 40 mg bid. 5. IS q2h bedside. 6. Reduce IV's and Increase diet. 7. CBC,BMP in am. Eden Dubose MD Aug 28, 2017 18:48
[2017-08-28] MEDS: BUDESONIDE-FORMOTEROL 80/4.5 MCG INHALER INH SCH (22:21)
[2017-08-29] VITALS (31 sets, daily range): BP systolic 149–174; BP diastolic 68–77; PULSE 60–124; RESP 22–30; TEMP 97.4–98.6; O2SAT 93–100
[2017-08-29] MEDS: metroNIDAZOLE 500 MG INJ 100 ML IV SCH ×4 (02:21→20:55)
[2017-08-29] MEDS: HALOPERIDOL LACTATE 5 MG/ML AMP IM PRN (05:24)
[2017-08-29 06:00] LABS: AUTOMATED NEUTROPHIL # 5.4 TH/MM3 (1.8-7.7); BASOPHIL % 0.1 % (0.0-2.0); HEMO FLAGS DIFF FINAL; LYMPH % 9.1 % (9.0-44.0); LYMPHOCYTE # 0.6 TH/MM3 (1.0-4.8); MEAN CORPUSCULAR HEMOGLOBIN 32.2 PG (27.0-34.0); MEAN CORPUSCULAR HGB CONC 33.1 % (32.0-36.0); MONO % 3.4 % (0.0-8.0); NEUT % 87.4 % (16.0-70.0); PLATELET COUNT 180 TH/MM3 (150-450); RED BLOOD COUNT 3.09 MIL/MM3 (4.00-5.30); RED CELL DISTRIBUTION WIDTH 14.7 % (11.6-17.2); WHITE BLOOD COUNT 6.2 TH/MM3 (4.0-11.0)
[2017-08-29 06:19] LABS: BICARBONATE 35.1 MEQ/L (21.0-32.0); POTASSIUM 3.1 MEQ/L (3.5-5.1)
[2017-08-29] MEDS: D5-LR + KCL 20 MEQ INJ 1,000 ML IV SCH (07:00)
[2017-08-29] MEDS: POTASSIUM CHLOR 20 MEQ PREMIX 100 ML IV SCH ×2 (08:58→11:03)
[2017-08-29] MEDS: methylPREDNISolone SOD SUCC 40 MG/1 ML VIAL IV SCH ×2 (08:59→20:54)
[2017-08-29] MEDS: BUDESONIDE-FORMOTEROL 80/4.5 MCG INHALER INH SCH ×2 (08:59→20:54)
[2017-08-29] MEDS: ENOXAPARIN SODIUM 60 MG/0.6 ML SYRINGE SQ SCH (08:59)
[2017-08-29] MEDS: SPIRONOLACTONE 25 MG TAB PO SCH (09:00)
[2017-08-29] MEDS: SODIUM CHLORIDE 0.9% FLUSH 10 ML FLUSH IV FLUSH SCH ×2 (09:00→20:54)
[2017-08-29] MEDS: PHENYTOIN SODIUM 100 MG CAP PO SCH ×3 (09:00→17:31)
[2017-08-29] MEDS: ALVIMOPAN 12 MG CAPSULE PO SCH ×2 (09:00→20:54)
[2017-08-29] MEDS: PANTOPRAZOLE SODIUM 40 MG VIAL IVP SCH (09:00)
[2017-08-29] MEDS: PRAVASTATIN SOD 20 MG TAB PO SCH (09:00)
[2017-08-29] MEDS: LOSARTAN 50 MG TAB PO SCH (09:00)
[2017-08-29] MEDS: METOPROLOL TARTRATE 100 MG TAB PO SCH ×2 (09:00→20:53)
[2017-08-29] MEDS: RESP: ALBUTEROL 2.5 MG/IPRATROPIUM 0.5 MG NEB (SCH) NEB ×4 (09:21→20:48)
[2017-08-29] MEDS: CEFEPIME INJ 2,000 MG in SODIUM CHLORIDE 0.9% INJ 100 ML IV SCH (10:01)
[2017-08-29] MEDS: D5-1/4 NS + KCL 20 MEQ INJ 1,000 ML IV SCH (14:45)
[2017-08-30] VITALS (31 sets, daily range): BP systolic 118–146; BP diastolic 53–83; PULSE 65–101; RESP 22–25; TEMP 97.4–98.7; O2SAT 93–99
[2017-08-30] MEDS: CEFEPIME INJ 2,000 MG in SODIUM CHLORIDE 0.9% INJ 100 ML IV SCH ×3 (00:25→21:16)
[2017-08-30] MEDS: metroNIDAZOLE 500 MG INJ 100 ML IV SCH ×4 (02:00→21:17)
[2017-08-30] MEDS: RESP: ALBUTEROL 2.5 MG/IPRATROPIUM 0.5 MG NEB (SCH) NEB ×4 (08:21→21:05)
[2017-08-30] MEDS: METOPROLOL TARTRATE 100 MG TAB PO SCH ×2 (08:56→21:17)
[2017-08-30] MEDS: PHENYTOIN SODIUM 100 MG CAP PO SCH ×3 (08:56→17:59)
[2017-08-30] MEDS: SODIUM CHLORIDE 0.9% FLUSH 10 ML FLUSH IV FLUSH SCH ×2 (08:56→21:17)
[2017-08-30] MEDS: methylPREDNISolone SOD SUCC 40 MG/1 ML VIAL IV SCH (08:56)
[2017-08-30] MEDS: LOSARTAN 50 MG TAB PO SCH (08:56)
[2017-08-30] MEDS: PRAVASTATIN SOD 20 MG TAB PO SCH (08:56)
[2017-08-30] MEDS: PANTOPRAZOLE SODIUM 40 MG VIAL IVP SCH (08:56)
[2017-08-30] MEDS: ENOXAPARIN SODIUM 60 MG/0.6 ML SYRINGE SQ SCH (08:56)
[2017-08-30] MEDS: SPIRONOLACTONE 25 MG TAB PO SCH (08:56)
[2017-08-30] MEDS: BUDESONIDE-FORMOTEROL 80/4.5 MCG INHALER INH SCH ×2 (08:57→21:17)
[2017-08-30] MEDS: D5-1/4 NS + KCL 20 MEQ INJ 1,000 ML IV SCH ×2 (08:57→17:25)
[2017-08-30] MEDS: ALVIMOPAN 12 MG CAPSULE PO SCH ×2 (10:33→21:17)
[2017-08-30 11:55] LABS: BICARBONATE 25.2 MEQ/L (21.0-32.0); POTASSIUM 4.4 MEQ/L (3.5-5.1)
[2017-08-31] VITALS (28 sets, daily range): BP systolic 110–149; BP diastolic 47–64; PULSE 72–107; RESP 16–20; TEMP 96.7–98.3; O2SAT 93–98
[2017-08-31] MEDS: metroNIDAZOLE 500 MG INJ 100 ML IV SCH ×4 (02:38→21:15)
[2017-08-31] MEDS: ENOXAPARIN SODIUM 60 MG/0.6 ML SYRINGE SQ SCH (07:50)
[2017-08-31] MEDS ORDERED: methylPREDNISolone SOD SUCC 40 MG/1 ML VIAL IV SCH (09:00)
[2017-08-31] MEDS: RESP: ALBUTEROL 2.5 MG/IPRATROPIUM 0.5 MG NEB (SCH) NEB (09:02)
[2017-08-31] MEDS: CEFEPIME INJ 2,000 MG in SODIUM CHLORIDE 0.9% INJ 100 ML IV SCH ×2 (09:09→22:53)
[2017-08-31] MEDS: D5-1/4 NS + KCL 20 MEQ INJ 1,000 ML IV SCH ×2 (09:09→20:05)
[2017-08-31] MEDS: PANTOPRAZOLE SODIUM 40 MG VIAL IVP SCH (09:10)
[2017-08-31] MEDS: BUDESONIDE-FORMOTEROL 80/4.5 MCG INHALER INH SCH ×2 (09:10→21:00)
[2017-08-31] MEDS: SODIUM CHLORIDE 0.9% FLUSH 10 ML FLUSH IV FLUSH SCH ×2 (09:10→21:16)
[2017-08-31] MEDS: SPIRONOLACTONE 25 MG TAB PO SCH (09:11)
[2017-08-31] MEDS: METOPROLOL TARTRATE 100 MG TAB PO SCH ×2 (09:11→21:15)
[2017-08-31] MEDS: LOSARTAN 50 MG TAB PO SCH (09:12)
[2017-08-31] MEDS: PHENYTOIN SODIUM 100 MG CAP PO SCH ×3 (09:12→18:36)
[2017-08-31] MEDS: PRAVASTATIN SOD 20 MG TAB PO SCH (09:12)
--- NOTE | 2017-08-31 10:55 | HHI.PR ---
Subjective Remarks Awake,alert,oriented x3. Tolerating PO. Stooling Objective Vital Signs Date Time Temp Pulse Resp B/P (MAP) Pulse Ox O2 Delivery O2 Flow Rate FiO2 08/31/17 10:00 85 08/31/17 09:06 94 21 08/31/17 09:00 107 08/31/17 08:00 88 08/31/17 07:15 98.3 95 20 135/60 (85) 94 08/31/17 07:15 94 Nasal Cannula 2.00 08/31/17 07:00 87 08/31/17 06:00 81 08/31/17 05:03 93 08/31/17 04:00 83 08/31/17 03:03 76 08/31/17 03:00 97.6 88 20 131/58 (82) 98 08/31/17 03:00 98 Nasal Cannula 2.00 08/31/17 02:02 74 08/31/17 01:00 75 08/31/17 00:00 74 08/30/17 23:00 98 Nasal Cannula 2.00 08/30/17 23:00 98.0 75 22 127/58 (81) 99 08/30/17 23:00 76 08/30/17 22:00 84 08/30/17 21:21 96 Nasal Cannula 3.00 08/30/17 21:00 100 08/30/17 20:00 90 08/30/17 19:00 99 Nasal Cannula 3.00 08/30/17 19:00 97.7 90 22 130/58 (82) 99 08/30/17 19:00 98 08/30/17 18:00 95 08/30/17 17:00 101 08/30/17 16:00 82 08/30/17 15:39 97.5 78 22 118/53 (74) 98 08/30/17 15:39 98 Nasal Cannula 3.00 08/30/17 15:00 79 08/30/17 14:00 72 08/30/17 13:00 86 08/30/17 12:00 80 08/30/17 11:46 98.7 80 23 133/64 (87) 99 08/30/17 11:46 99 Nasal Cannula 3.00 08/30/17 11:00 79 I/O 08/30/17 08/30/17 08/30/17 08/31/1708/31/17 11/20/17 07:00 15:00 23:00 07:00 15:00 23:00 Intake Total 580 ml 1643 ml 1430 ml Output Total 330 ml 715 ml 560 ml Balance 250 ml 928 ml 870 ml Intake Oral 480 ml 760 ml 360 ml IV Total 100 ml 883 ml 1070 ml Output Urine Total 310 ml 700 ml 550 ml Drainage Total 20 ml 15 ml 10 ml # Bowel Movements 1 Result Diagram: 08/29/17 0500 08/30/17 1033 Objective Remarks VS-S Abd: flat,soft,wound clean,drain removed I&Os: Continued good U/O Labs: IVs hep lock Assessment and Plan Assessment and Plan Stable POD#7 Drain removed D/C tomorrow DVT tx at home per Dr Sedrick Finn,Horace Elizondo MD Aug 31, 2017 10:55
--- NOTE | 2017-08-31 12:07 | PD.PN.STU ---
Subjective Remarks Patient states she is doing better today. Complains of bilateral leg swelling. Denies any chest pains, shortness of breath, cough, or wheezing. Objective Vitals GENERAL: Sitting upright in chair. In no acute distress. Makes good eye contact. Communicates coherently. SKIN: Warm and dry. HEAD: Normocephalic. EYES: No scleral icterus. No injection or drainage. NECK: Supple, trachea midline. No JVD. CARDIOVASCULAR: Regular rate and rhythm without murmurs, gallops, or rubs. RESPIRATORY: Breath sounds equal bilaterally. No accessory muscle use. No wheezes. No crackles. No rubs. EXTREMITIES: Edema in lower extremities. Wearing compression stockings. NEUROLOGICAL: Awake, alert, and oriented x 3. Vital Signs Date Time Temp Pulse Resp B/P (MAP) Pulse Ox O2 Delivery O2 Flow Rate FiO2 08/31/17 11:00 81 08/31/17 11:00 96.7 85 17 110/47 (68) 96 08/31/17 11:00 96 Room Air 08/31/17 10:00 85 08/31/17 09:06 94 21 08/31/17 09:00 107 08/31/17 08:00 88 08/31/17 07:15 98.3 95 20 135/60 (85) 94 08/31/17 07:15 94 Nasal Cannula 2.00 08/31/17 07:00 87 08/31/17 06:00 81 08/31/17 05:03 93 08/31/17 04:00 83 08/31/17 03:03 76 08/31/17 03:00 97.6 88 20 131/58 (82) 98 08/31/17 03:00 98 Nasal Cannula 2.00 08/31/17 02:02 74 08/31/17 01:00 75 08/31/17 00:00 74 08/30/17 23:00 98 Nasal Cannula 2.00 08/30/17 23:00 98.0 75 22 127/58 (81) 99 08/30/17 23:00 76 08/30/17 22:00 84 08/30/17 21:21 96 Nasal Cannula 3.00 08/30/17 21:00 100 08/30/17 20:00 90 08/30/17 19:00 99 Nasal Cannula 3.00 08/30/17 19:00 97.7 90 22 130/58 (82) 99 08/30/17 19:00 98 08/30/17 18:00 95 08/30/17 17:00 101 08/30/17 16:00 82 08/30/17 15:39 97.5 78 22 118/53 (74) 98 08/30/17 15:39 98 Nasal Cannula 3.00 08/30/17 15:00 79 08/30/17 14:00 72 08/30/17 13:00 86 I/O 08/30/17 08/30/17 08/30/17 08/31/17 08/31/17 08/31/17 07:00 15:00 23:00 07:00 15:00 23:00 Intake Total 580 ml 1643 ml 1430 ml Output Total 330 ml 715 ml 560 ml Balance 250 ml 928 ml 870 ml Intake Oral 480 ml 760 ml 360 ml IV Total 100 ml 883 ml 1070 ml Output Urine Total 310 ml 700 ml 550 ml Drainage Total 20 ml 15 ml 10 ml # Bowel Movements 1 Result Diagram: 08/29/17 0500 08/30/17 1033 A/P Assessment and Plan IMPRESSION: 1. COPD with chronic bronchitis 2. Hypercapnia and hypoxemia 3. Status post exploratory laparotomy and repair of perforated colon and sigmoid resection 4. History of seizures 5. Altered mental status, resolved 6. Rule out pulmonary emboli 7. DVT, right popliteal vein Plan: 1. D/C Lovenox 2. O2 at 3L N/C as needed 3. D/C Duoneb nebs 4. D/C Solumedrol 5. Eliquis 5 mg by mouth twice daily 5. IS every 2 hours bedside 6. Reduce IV's and continue whole food diet 7. Symbicort 160/4.5 mcg 2 puffs twice daily 7. Okay to go home tomorrow once cleared by Tatum Bravo Aug 31, 2017 12:07
--- NOTE | 2017-08-31 12:49 | HHI.PR ---
Subjective Remarks More alert and No SOB . Off O2 Has DVT on Venous doppler. Taking PO well Objective Vital Signs Date Time Temp Pulse Resp B/P (MAP) Pulse Ox O2 Delivery O2 Flow Rate FiO2 08/31/17 12:00 83 08/31/17 11:00 81 08/31/17 11:00 96.7 85 17 110/47 (68) 96 08/31/17 11:00 96 Room Air 08/31/17 10:00 85 08/31/17 09:06 94 21 08/31/17 09:00 107 08/31/17 08:00 88 08/31/17 07:15 98.3 95 20 135/60 (85) 94 08/31/17 07:15 94 Nasal Cannula 2.00 08/31/17 07:00 87 08/31/17 06:00 81 08/31/17 05:03 93 08/31/17 04:00 83 08/31/17 03:03 76 08/31/17 03:00 97.6 88 20 131/58 (82) 98 08/31/17 03:00 98 Nasal Cannula 2.00 08/31/17 02:02 74 08/31/17 01:00 75 08/31/17 00:00 74 08/30/17 23:00 98 Nasal Cannula 2.00 08/30/17 23:00 98.0 75 22 127/58 (81) 99 08/30/17 23:00 76 08/30/17 22:00 84 08/30/17 21:21 96 Nasal Cannula 3.00 08/30/17 21:00 100 08/30/17 20:00 90 08/30/17 19:00 99 Nasal Cannula 3.00 08/30/17 19:00 97.7 90 22 130/58 (82) 99 08/30/17 19:00 98 08/30/17 18:00 95 08/30/17 17:00 101 08/30/17 16:00 82 08/30/17 15:39 97.5 78 22 118/53 (74) 98 08/30/17 15:39 98 Nasal Cannula 3.00 08/30/17 15:00 79 08/30/17 14:00 72 08/30/17 13:00 86 I/O 08/30/17 08/30/17 08/30/17 08/31/1708/31/17 11/20/17 07:00 15:00 23:00 07:00 15:00 23:00 Intake Total 580 ml 1643 ml 1430 ml Output Total 330 ml 715 ml 560 ml Balance 250 ml 928 ml 870 ml Intake Oral 480 ml 760 ml 360 ml IV Total 100 ml 883 ml 1070 ml Output Urine Total 310 ml 700 ml 550 ml Drainage Total 20 ml 15 ml 10 ml # Bowel Movements 1 Result Diagram: 08/29/17 0500 08/30/17 1033 Objective Remarks GENERAL: This is a well-nourished, well-developed patient, in no apparent distress. CARDIOVASCULAR: Regular rate and rhythm without murmurs, gallops, or rubs. RESPIRATORY: Diffuse expiratory wheezes, diminish breath sounds bilaterally. GASTROINTESTINAL: Abdomen soft, non-tender,nondistended. Normal active bowel sounds. Wound healing. MUSCULOSKELETAL: Extremities without clubbing, cyanosis, or edema. NEURO: Alert & Oriented x4 to person, place, time, situation. Moves all ext x4 Assessment and Plan Assessment and Plan IMPRESSION 1. COPD with chronic bronchitis 2. Hypercapnia and hypoxemia. 3. Status post exploratory laparotomy and repair of perforated colon and sigmoid resection 4. History of seizures 5. Altered mental status 6. Rule out pulmonary emboli. 7. DVT. Plan : 1. D/C Lovenox 2. D/C O2 3. D/C Nebs 4. D/C solumedrol 5. IS q2h bedside. 6. Reduce IV's and Increase diet. 7. Symbicort 160/4.5 Mcg , 2 puffs bid Eden Dubose MD Aug 31, 2017 12:49
--- NOTE | 2017-08-31 15:01 | HHI.FF ---
Face to Face Verification Diagnosis: (1) Status post repair perforation of rectum (2) Perforated bowel Physical Therapy Order: Evaluate and Treat, Improve ambulation, Strength and gait training Home Health Nursing Order: Medical education Signs/symptoms of disease process Oxygen administration education Nursing assessment with vital signs I have seen patient Roxy Joy on 08/31/17. My clinical findings support the need for the requested home health care services because: Ltd mobility - disease progression Patient has SOB Deconditioned w/ increased weakness Med compliance is questionable Limited ability to care for self Need for psychosocial assistance High risk of falls I certify that my clinical findings support that this patient is homebound because: Post-op weakness Impaired cognitive ability/safety Hx COPD- exertion dyspnea/weakness Unsteady gait/balance Unsafe to leave home unassisted Need for psychosocial assistance Horace Finn MD Aug 31, 2017 15:01
[2017-08-31] MEDS: BUDESONIDE-FORMOTEROL 160/4.5 MCG INHALER INH SCH (21:15)
[2017-08-31] MEDS: APIXABAN 5 MG TABLET PO SCH (21:16)
[2017-09-01] VITALS (16 sets, daily range): BP systolic 113–159; BP diastolic 65–86; PULSE 70–88; RESP 16–18; TEMP 97.5–97.8; O2SAT 93–96
[2017-09-01] MEDS: metroNIDAZOLE 500 MG INJ 100 ML IV SCH ×2 (01:52→08:53)
[2017-09-01] MEDS: SODIUM CHLORIDE 0.9% FLUSH 10 ML FLUSH IV FLUSH SCH (08:51)
[2017-09-01] MEDS: BUDESONIDE-FORMOTEROL 80/4.5 MCG INHALER INH SCH (08:51)
[2017-09-01] MEDS: PANTOPRAZOLE SODIUM 40 MG VIAL IVP SCH (08:51)
[2017-09-01] MEDS: BUDESONIDE-FORMOTEROL 160/4.5 MCG INHALER INH SCH (08:52)
[2017-09-01] MEDS: LOSARTAN 50 MG TAB PO SCH (08:53)
[2017-09-01] MEDS: APIXABAN 5 MG TABLET PO SCH (08:53)
[2017-09-01] MEDS: METOPROLOL TARTRATE 100 MG TAB PO SCH (08:53)
[2017-09-01] MEDS: PRAVASTATIN SOD 20 MG TAB PO SCH (08:53)
[2017-09-01] MEDS: SPIRONOLACTONE 25 MG TAB PO SCH (08:53)
[2017-09-01] MEDS: PHENYTOIN SODIUM 100 MG CAP PO SCH ×2 (08:54→15:41)
--- NOTE | 2017-09-01 09:06 | HHI.PR ---
Review/Management Daily Summary 08/28 when I came yesterday evening she was having imaging studies, spoke to her daughter yest spoke to staff yest and today eeg results seen dilantin level repeat 16 the eyebrown twitching is improved she is lethargic but follows commands, moves 4 limbs neuro christina ok to treat DVT with anticoagulation increase dilantin to 100 tid check amonia and lft's suspect all metabolic encephalopathy from multiple medical issues, renal impairment neuro available prn 09/01 doing quite well overall alert and fully oriented pleasant conversation expecting to go home today nonfocal brief motor but she was in the toilet when I visited speech normal spoke to RN improved met encephalopathy will see prn Subjective Subjective Comments Fell yesterday No acute events reported No headache No chest pain No dyspnea Active Medications Current Medications Medications (Trade) Dose Ordered Sig/Tamir Route Start Time Stop Time Status Last Admin (NS Flush) 2 ml UNSCH PRN IV FLUSH 08/24/17 15:30 (NS Flush) 2 ml BID IV FLUSH 08/24/17 21:00 09/01/17 08:51 (Pine 5-325 Mg) 1 tab Q4H PRN PO 08/24/17 15:30 Future Hold 08/26/17 09:37 (Pine 5-325 Mg) 2 tab Q4H PRN PO 08/24/17 15:30 Future Hold 08/25/17 20:01 (Protonix Inj) 40 mg DAILY IVP 08/25/17 09:00 09/01/17 08:51 (Zofran Inj) 4 mg Q6H PRN IV PUSH 08/24/17 15:30 08/25/17 20:14 (Vasotec Inj) 1.25 mg Q4H PRN IV PUSH 08/24/17 15:30 08/28/17 19:54 (Chloraseptic Celestine) 1 lozenge UNSCH PRN BUCCAL 08/24/17 15:30 Potassium Chloride 100 ml @ 50 mls/hr UNSCH PRN IV 08/24/17 15:30 Potassium Chloride 100 ml @ 25 mls/hr UNSCH PRN IV 08/24/17 15:30 (Proair Hfa Inh) 2 puff Q6HR PRN INH 08/24/17 15:45 (Cozaar) 100 mg DAILY PO 08/25/17 09:00 09/01/17 08:53 (Lopressor) 100 mg BID PO 08/24/17 21:00 09/01/17 08:53 (Aldactone) 25 mg DAILY PO 08/25/17 09:00 09/01/17 08:53 Metronidazole 100 ml @ 100 mls/hr Q6H IV 08/24/17 20:00 09/01/17 08:53 Patient Own Medication PT OWN MED: PERFORM... BID INH 08/24/17 21:00 Future Hold (Pravachol) 20 mg DAILY PO 08/25/17 09:00 09/01/17 08:53 (Albuterol Neb) 2.5 mg Q6HR NEB PRN INH 08/26/17 10:30 08/27/17 10:57 (Haldol Inj) 1 mg Q4H PRN IM 08/27/17 08:15 08/29/17 05:24 (Dilantin) 100 mg TID PO 08/28/17 09:00 09/01/17 08:54 (Symbicort 80-4.5 Mcg Inh) 1 puff Q12HR INH 08/28/17 21:00 09/01/17 08:51 Cefepime HCl 2000 mg/Sodium Chloride 100 ml @ 200 mls/hr Q12H IV 08/29/17 22:00 08/31/17 22:53 Potassium Chloride/Dextrose/ Sod Cl 1,000 ml @ 75 mls/hr [id number] IV 08/29/17 14:45 08/31/17 09:09 (Eliquis) 5 mg BID PO 08/31/17 21:00 09/01/17 08:53 (Symbicort 160-4.5 Inh) 2 puff Q12HR INH 08/31/17 21:00 09/01/17 08:52 Allergies Allergies Coded Allergies amlodipine (Unverified Allergy, Severe, SWELLING, 08/24/17) azithromycin (Unverified Allergy, Severe, "MYCINS"-HIVES, 08/24/17) ciprofloxacin (Unverified Allergy, Severe, Rash, 08/24/17) diltiazem (Unverified Allergy, Severe, 08/24/17) duloxetine (Unverified Allergy, Severe, Confusion, 08/24/17) erythromycin base (Unverified Allergy, Severe, "MYCINS"-HIVES, 08/24/17) hydrochlorothiazide (Unverified Allergy, Severe, 08/24/17) pentazocine (Unverified Allergy, Severe, CRAZY, 08/24/17) triamterene (Unverified Allergy, Severe, 08/24/17) gabapentin (Unverified Allergy, Unknown, 08/24/17) Exam I&O / VS Vital Signs Date Time Temp Pulse Resp B/P (MAP) Pulse Ox O2 Delivery O2 Flow Rate FiO2 09/01/17 08:00 87 09/01/17 07:00 80 09/01/17 06:00 78 09/01/17 05:00 78 09/01/17 04:00 86 09/01/17 03:00 97.8 81 16 159/65 (96) 93 09/01/17 03:00 76 09/01/17 02:00 74 09/01/17 01:00 82 09/01/17 00:00 72 08/31/17 23:00 97.9 99 16 149/64 (92) 98 08/31/17 23:00 72 08/31/17 22:03 94 08/31/17 22:00 74 08/31/17 21:00 92 08/31/17 20:00 96 08/31/17 19:00 86 08/31/17 19:00 93 Room Air 08/31/17 19:00 97.6 96 20 137/64 (88) 93 08/31/17 18:02 85 08/31/17 17:00 83 08/31/17 16:04 72 08/31/17 15:00 Room Air 08/31/17 15:00 73 08/31/17 15:00 96.8 74 17 122/56 (78) 08/31/17 14:00 84 08/31/17 13:00 86 08/31/17 12:00 83 08/31/17 11:00 81 08/31/17 11:00 96.7 85 17 110/47 (68) 96 08/31/17 11:00 96 Room Air 08/31/17 10:00 85 08/31/17 09:06 94 21 Lamine Mckenna MD Sep 01, 2017 09:06
[2017-09-01] MEDS: D5-1/4 NS + KCL 20 MEQ INJ 1,000 ML IV SCH (09:11)
--- NOTE | 2017-09-01 13:01 | HHI.PR ---
Subjective Remarks More alert and No SOB . On O2 2L. Had a Fall last PM but no Injuries. Has DVT on Venous doppler. On Eliquis now. Objective Vital Signs Date Time Temp Pulse Resp B/P (MAP) Pulse Ox O2 Delivery O2 Flow Rate FiO2 09/01/17 10:00 88 09/01/17 09:05 96 21 09/01/17 09:00 82 09/01/17 08:00 87 09/01/17 07:00 80 09/01/17 07:00 97.5 80 18 113/86 (95) 96 09/01/17 06:00 78 09/01/17 05:00 78 09/01/17 04:00 86 09/01/17 03:00 97.8 81 16 159/65 (96) 93 09/01/17 03:00 76 09/01/17 02:00 74 09/01/17 01:00 82 09/01/17 00:00 72 08/31/17 23:00 97.9 99 16 149/64 (92) 98 08/31/17 23:00 72 08/31/17 22:03 94 08/31/17 22:00 74 08/31/17 21:00 92 08/31/17 20:00 96 08/31/17 19:00 86 08/31/17 19:00 93 Room Air 08/31/17 19:00 97.6 96 20 137/64 (88) 93 08/31/17 18:02 85 08/31/17 17:00 83 08/31/17 16:04 72 08/31/17 15:00 Room Air 08/31/17 15:00 73 08/31/17 15:00 96.8 74 17 122/56 (78) 08/31/17 14:00 84 08/31/17 13:00 86 I/O 08/31/17 08/31/17 08/31/17 09/01/17 09/01/17 09/01/17 06:59 14:59 22:59 06:59 14:59 22:59 Intake Total 1430 ml 300 ml 320 ml Output Total 560 ml 600 ml Balance 870 ml 300 ml -280 ml Intake Oral 360 ml 120 ml IV Total 1070 ml 300 ml 200 ml Output Urine Total 550 ml 600 ml Drainage Total 10 ml # Voids 3 1 Result Diagram: 08/29/17 0500 08/30/17 1033 Objective Remarks GENERAL: This is a well-nourished, well-developed patient, in no apparent distress. CARDIOVASCULAR: Regular rate and rhythm without murmurs, gallops, or rubs. RESPIRATORY: diminished breath sounds bilaterally. GASTROINTESTINAL: Abdomen soft, non-tender,nondistended. Normal active bowel sounds. Wound healing. MUSCULOSKELETAL: Extremities without clubbing, cyanosis, or edema. NEURO: Alert & Oriented x4 to person, place, time, situation. Moves all ext x4 Assessment and Plan Assessment and Plan IMPRESSION 1. COPD with chronic bronchitis 2. Hypercapnia and hypoxemia. 3. Status post exploratory laparotomy and repair of perforated colon and sigmoid resection 4. History of seizures 5. Altered mental status 6. Rule out pulmonary emboli. 7. DVT. Plan : 1. 6 min walk test 2. O2 at Home 2 L if sats <89 3. D/C Nebs 4. D/C solumedrol 5. IS q2h bedside. 6. D/C IV's and Increase diet. 7. Symbicort 160/4.5 Mcg , 2 puffs bid 8. Antibiotics per Dr Finn. 9. OK to go home and will see as OP in 3 weeks Eden Dubose MD Sep 01, 2017 13:01
[2017-09-01] MEDS: RESP: ALBUTEROL 2.5 MG/3 ML NEB (PRN) INH (13:35)
[2017-09-01] MEDS ORDERED: OXYGENDME NAS.CANULA ×3 (13:43→13:46)
--- NOTE | 2017-09-01 21:44 | MD ---
cc: RENEE,BEN TA,ELBA REZA,BILLY MORAN MD,GLORIA Bingham M.D. ADMISSION DATE: 08/24/2017 DISCHARGE DATE: 09/01/2017 ADMISSION DIAGNOSIS Colon perforation. DISCHARGE DIAGNOSIS Upper rectal perforation. OPERATIVE PROCEDURE 08/24/2017 closure of rectosigmoid perforation. HISTORY This patient was referred to me by Dr. Elba Ta. She is a patient I have known for many years. She had a perforation of her rectosigmoid junction at the time of colonoscopy, approximately 3 to 4 hours prior to her procedure. The patient was immediately transferred to the hospital and had abdominal pain on free air, and a portable chest x-ray and laparotomy was planned. HOSPITAL COURSE The patient was admitted to the hospital on 08/24/2017, underwent laparotomy and had closure of this rectal perforation. She did well operatively and postoperatively on the first postoperative day, but on the second postoperative day she became profoundly confused. She also had moderately decreased urine output with increasing BUN and creatinine with a creatinine level up to about 2. She was eventually given Bumex with a good response and her fluids were adjusted. The patient began having extreme confusion and needed restraints. Eventually neurology was consulted because of her history of seizures and stroke in the past and Dr. Gloria Mckenna saw her and felt that she did not have a stroke but since her Dilantin level was subtherapeutic, gave her increased Dilantin. CT scan of the head did not show any evidence of a stroke. She had also slightly worsened respiratory acidosis postoperatively because of her chronic obstructive pulmonary disease, and was seen by Dr. Ben Dubose. CT angiogram could not be done but a ventilation perfusion scan was done and was read as low probability with a matched defect. She underwent lower extremity ultrasound and was found to have DVT in her lower leg was started on Lovenox full dose. She continued to slowly improve and her mentation slowly became better. 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 She was still fairly weak and needed a walker to ambulate and was on oxygen. She was discharged on 09/01/2017, moving her bowels. Her skin jenn were removed prior to discharge and she was discharged on home oxygen and all her previous medications. She will be followed postoperatively by Dr. Ben Dubose or Dr. Bustos in three weeks. I will see her in my office in two weeks. She was instructed to do no driving and to walk with a walker. She was discharged with home health nursing and physical therapy. MD LINDA Blakely/MANGO /6:33 PM /9:10 PM
== END 2017-09-01 18:40 | disposition home health service (06) | DRG 329 ==
LOC: HOR 11:12 → HPAC 11:26 → HCPC 18:43
PROVIDERS: ADMIT Colon & Rectal Surgery; ATTEND Colon & Rectal Surgery
PROC: 0DB68ZX Excision of Stomach, Via Natural or Artificial Opening Endoscopic, Diagnostic (ICD-10-PCS; 2017-08-24)
PROC: 0DJD8ZZ Inspection of Lower Intestinal Tract, Via Natural or Artificial Opening Endoscopic (ICD-10-PCS; 2017-08-24)
PROC: 0DQP0ZZ Repair Rectum, Open Approach (ICD-10-PCS; principal; 2017-08-24 13:26)
PROC: 0DJD8ZZ Inspection of Lower Intestinal Tract, Via Natural or Artificial Opening Endoscopic (ICD-10-PCS; 2017-08-24 13:26)
DX: K63.1 Perforation of intestine (nontraumatic) (principal); G93.41 Metabolic encephalopathy; E87.2 Acidosis; I82.409 Acute embolism and thrombosis of unspecified deep veins of unspecified lower extremity; I11.0 Hypertensive heart disease with heart failure; I50.9 Heart failure, unspecified; J98.11 Atelectasis; R56.9 Unspecified convulsions; J44.9 Chronic obstructive pulmonary disease, unspecified; K25.9 Gastric ulcer, unspecified as acute or chronic, without hemorrhage or perforation; I69.398 Other sequelae of cerebral infarction; E78.5 Hyperlipidemia, unspecified; H54.62 Unqualified visual loss, left eye, normal vision right eye; K21.9 Gastro-esophageal reflux disease without esophagitis; M19.90 Unspecified osteoarthritis, unspecified site; H91.90 Unspecified hearing loss, unspecified ear; N28.9 Disorder of kidney and ureter, unspecified; E86.0 Dehydration; R09.02 Hypoxemia; Z79.51 Long term (current) use of inhaled steroids; Z86.010 Personal history of colon polyps; Z87.891 Personal history of nicotine dependence; Z87.442 Personal history of urinary calculi; Z78.1 Physical restraint status; W19.XXXA Unspecified fall, initial encounter; Y92.239 Unspecified place in hospital as the place of occurrence of the external cause
CPT/HCPCS: 36600; 70450; 71010; 71020; 76937; 78582; 80048; 80053; 80076; 80185; 82140; 82805; 84155; 85025; 85379; 85610; 85730; 86850; 86900; 86901; 88305; 88307; 93005; 93970; 94150; 94620; 94640; 95819; A9540; A9567; C9113; J0692; J0696; J1165; J1630; J1644; J1650; J1720; J1940; J2250; J2270; J2370; J2405; J2710; J2765; J2920; J3010; J3480; J7040; J7120; J7613

== ENCOUNTER → 2017-08-24 | Day surgery (SDC) | payer MEDICARE ==
[~2017-08-24] MED LIST changes: +ALBU0.08 NEB; -ALBU0.086 NEB; -ASPI81TA82 PO; -COZA50TA PO; -DIAZ5 PO; +DO NOT ADM ANY ANTICOAGULANT DRUGS PRN; -FORM12I INH; +FORM20NE INH; -IPRA0.03; +LACTATED RINGER'S 1000 ML INJ 1,000 ML ONE; +LEVOFLOXACIN 500 MG PREMIX INJ 100 ML IV ONE; +LOSA100T PO; +MEPERIDINE HCL 25 MG/ML VIAL ONE; +PANT40TA3 PO; +POTA-163 PO; -POTA-267 PO; +PROPOFOL 200 MG/20 ML AMP IV ONE; -PROT40TA PO; +SPIR25TA PO; -THEO200T27 PO; +ZOCO10TA PO; -ZOCO40TA PO; +metroNIDAZOLE 500 MG INJ 100 ML IV ONE
--- NOTE | 2017-08-24 10:28 | GIPROC ---
[facility] [address] [facility], [address] COLONOSCOPY PROCEDURE REPORT EXAM DATE: 08/24/2017 PATIENT NAME: Roxy Joy MR #: [id number] BIRTHDATE: 1935 ENDOSCOPIST: Nas Ta MD ORDER #: [id number] SERVICE VEHICLE OPERATOR: Kenny Veliz RN STATUS: outpatient INDICATIONS: The patient is a 82 yr old female here for a colonoscopy due to high risk patient with personal history of colonic polyps PROCEDURE PERFORMED: Colonoscopy, incomplete MEDICATIONS: None and Per Anesthesia. PREP QUALITY: good ESTIMATED BLOOD LOSS: None CONSENT: The patient understands the risks and benefits of the procedure and understands that these risks include, but are not limited to: sedation, allergic reaction, infection, perforation and/or bleeding. Alternative means of evaluation and treatment include, among others: physical exam, x-rays, and/or surgical intervention. The patient elects to proceed with this endoscopic procedure. medical equipment was checked for proper function. Hand hygiene and appropriate measures for infection prevention was taken. After the risks, benefits and alternatives of the procedure were thoroughly explained, Informed consent was verified, confirmed and timeout was successfully executed by the treatment team. A digital exam The EC-[id number] ([id number]) endoscope was introduced through the anus and advanced to the sigmoid colon. The instrument was then slowly withdrawn as the colon was fully examined. COLON FINDINGS: I passed the scope to about 25-30 cm, the scope was looing in the sigmoid, I asked our nurse to perform external pressure, as i advanced the scope, i saw yellow tissue ? omentom, the proceduer was terminated immediatly, the scope was removed without any air isuflation. Retroflexion was not performed The scope was then completely withdrawn from the patient and the procedure terminated. ADVERSE EVENTS: There were no complications. IMPRESSIONS: 1. I passed the scope to about 25-30 cm, the scope was looing in the sigmoid, I asked our nurse to perform external pressure, as i advanced the scope, i saw yellow tissue ? omentom, the proceduer was terminated immediatly, the scope was removed without any air isuflation 2. Retroflexion was not performed 3. Suspected perforation in the sigmoid RECOMMENDATIONS: We [facility] transfer [facility] start antibiotic CT of the abdomen and pelvic surgical consult RECALL: Colonoscopy base on hospital course Nas Ta MD eSigned: Nas Ta MD 08/24/2017 10:28 AM cc: Coleen Toledo M.D.
--- NOTE | 2017-08-24 10:34 | GIPROC ---
[facility] [address] [facility], [address] EGD PROCEDURE REPORT EXAM DATE: 08/24/2017 PATIENT NAME: Roxy Joy MR #: [id number] BIRTHDATE: 1935 ATTENDING: Nas Ta MD ORDER #: [id number] LIFE SCIENCE TECHNICIAN: Kenny Veliz RN STATUS: outpatient INDICATIONS: The patient is a 82 yr old female here for an EGD due to history of gastric ulcer PROCEDURE PERFORMED: EGD w/ biopsy MEDICATIONS: None and Per Anesthesia. TOPICAL ANESTHETIC: CONSENT: The patient understands the risks and benefits of the procedure and understands that these risks include, but are not limited to: sedation, allergic reaction, infection, perforation and/or bleeding. Alternative means of evaluation and treatment include, among others: physical exam, x-rays, and/or surgical intervention. The patient elects to proceed with this endoscopic procedure. medical equipment was checked for proper function. Hand hygiene and appropriate measures for infection prevention was taken. After the risks, benefits and alternatives of the procedure were thoroughly explained, Informed consent was verified, confirmed and timeout was successfully executed by the treatment team. The patient was anesthetized with topical anesthesia and the EC-[id number] ([id number]) endoscope was introduced through the mouth and advanced to the second portion of the duodenum. Retroflexed views revealed no abnormalities The gastroscope was then slowly withdrawn and removed. Small ulcer in the antrum, smaller than the one before Bx from antrum. The endoscopy was otherwise normal. ADVERSE EVENTS: There were no complications. IMPRESSIONS: 1. Small ulcer in the antrum, smaller than the one before Bx from antrum 2. Normal endoscopy otherwise 3. Retroflexed views revealed no abnormalities RECOMMENDATIONS: 1. Await biopsy results. Biopsy results will not be ready for 7-10 days. If you don't hear from us in two weeks, call our office for biopsy results. 2. Anti-reflux regimen PATIENT CONDITION: stable DISPOSITION: Observation REPEAT EXAM: Return as needed for EGD Nas Ta MD eSigned: Nas Ta MD 08/24/2017 10:33 AM cc: Coleen Toledo M.D.
== END | disposition home or self-care (01) ==
LOC: ESDC 07:09
PROVIDERS: ATTEND Hospitalist
DX: Z12.11 Encounter for screening for malignant neoplasm of colon (principal); Z86.010 Personal history of colon polyps; K25.9 Gastric ulcer, unspecified as acute or chronic, without hemorrhage or perforation
CPT/HCPCS: 00740; 00810; 43239; 45330; 88305; 88312; J1956; J2175; J3010; J7120

== ENCOUNTER 2017-09-11 07:25 | Emergency (ER) | payer MEDICARE ==
[~2017-09-11] VITALS: Ht 167.6 cm; Wt 60.1 kg
[~2017-09-11 07:25] MED LIST changes: +OXYGENDME NAS.CANULA
[2017-09-11 07:33] VITALS: BP 143/77; PULSE 71; RESP 18; TEMP 97.8; O2SAT 95
[2017-09-11] MEDS ORDERED: KETOROLAC TROMETHAMINE 30 MG/ML (IVP) VIAL IV PUSH ONE (08:15)
--- NOTE | 2017-09-11 08:36 | RADRPT ---
EXAM DATE/TIME: 09/11/2017 08:19 [facility] COMPARISON: No previous studies available for comparison. INDICATIONS : Left foot pain entire foot heel to toes, since last night. Blisters on foot since last week. MEDICAL HISTORY : None. SURGICAL HISTORY : None. ENCOUNTER: Initial ACUITY: 1 day PAIN SCORE: 8/10 LOCATION: Left foot FINDINGS: Two view examination of the left foot demonstrates no soft tissue swelling, dislocation, or fracture. The calcaneus is intact. Spurring of the calcaneus. Bony mineralization is normal. CONCLUSION: No acute abnormality. Catrachito Bennett Jr., MD on September 11, 2017 at 8:33 Board Certified Radiologist. This report was verified electronically.
--- NOTE | 2017-09-11 08:44 | PD ---
HPI Chief Complaint: Skin Problem Time Seen by Provider: 07:55 Travel History International Travel<30 days: No Contact w/Intl Traveler<30days: No Traveled to known affect area: No History of Present Illness HPI 82yo F presents to the ED with c/o lower extremity blisters and left foot pain after the blister has ruptured. Blisters have been there for 1 week. Denies any new medications. Pt was admitted 08/24/17-09/01/17 for perforation of rectosigmoid colon and had lower extremity edema and placed on lasix. Denies any fever, chest pain, sob, n/v, abdominal pain. Pt has wound care nurse for her abdominal wound but not her legs. Pt also had right DVT during her admission and was on lovenox. PFSH Past Medical History Hx Anticoagulant Therapy: No Arthritis: Yes Asthma: No Atrial Fibrillation: Yes Autoimmune Disease: No Blood Disorders: No Heart Rhythm Problems: No Cancer: No Cardiovascular Problems: Yes (htn on meds) High Cholesterol: Yes Chest Pain: Yes Congestive Heart Failure: No COPD: Yes Cerebrovascular Accident: Yes (cva) Diabetes: No Diminished Hearing: Yes Endocrine: No Gastrointestinal Disorders: Yes GERD: Yes Genitourinary: No Headaches: No Hepatitis: No Hiatal Hernia: No Hypertension: Yes Immune Disorder: No Implanted Vascular Access Dvce: No Kidney Stones: Yes Medical other: No Musculoskeletal: Yes Neurologic: Yes Psychiatric: No Respiratory: Yes (copd) Migraines: No Seizures: Yes (POST CVA) Sleep Apnea: No Thyroid Disease: No Ulcer: No PNEUMOCCOCAL Vaccine (Year): 1 ?: Not Menopausal: Yes Past Surgical History Abdominal Surgery: Yes (APPENDECTOMY,CHOECYSTECTOMY, hysterectomy, perforated colon repair) Appendectomy: Yes Cholecystectomy: Yes (2002) Endocrine Surgery: Yes (GALLBLADDER) Eye Surgery: Yes (BILAT CATARACT) Hysterectomy: Yes Pacemaker: No Other Surgery: Yes (BREAST BIOPSIES) Social History Alcohol Use: No (DENIES) Tobacco Use: No (FORMER) Substance Use: No Allergies-Medications (Allergen,Severity, Reaction): Coded Allergies: amlodipine (Unverified Allergy, Severe, SWELLING, 09/11/17) azithromycin (Unverified Allergy, Severe, "MYCINS"-HIVES, 09/11/17) ciprofloxacin (Unverified Allergy, Severe, Rash, 09/11/17) diltiazem (Unverified Allergy, Severe, 09/11/17) hives duloxetine (Unverified Allergy, Severe, Confusion, 09/11/17) erythromycin base (Unverified Allergy, Severe, "MYCINS"-HIVES, 09/11/17) hydrochlorothiazide (Unverified Allergy, Severe, 09/11/17) pentazocine (Unverified Allergy, Severe, CRAZY, 09/11/17) triamterene (Unverified Allergy, Severe, 09/11/17) gabapentin (Unverified Allergy, Unknown, 09/11/17) Reported Meds & Prescriptions Reported Meds & Active Scripts Active Tylenol (Acetaminophen) 325 Mg Tab 325 Mg PO Q4H PRN Pantoprazole (Pantoprazole Sodium) 40 Mg Tab 40 Mg PO DAILY Reported Oxygen (O2) Device Liter MANGO.CANULA CONTINUOUS Oxygen Concentrator Portable Gaseous 2 L/min via Nasal Canula Continuous For 99 months Oxygen (O2) Device Liter MANGO.CANULA CONTINUOUS Oxygen Concentrator Portable Gaseous 2 L/min via Nasal Canula Continuous For 99 months Oxygen (O2) Device Liter MANGO.CANULA CONTINUOUS Oxygen Concentrator Portable Gaseous 2 L/min via Nasal Canula Continuous For 99 months Ventolin Hfa 18 GM Inh (Albuterol Sulfate) 90 Mcg/Act Aer 2 Puff INH Q4-6H PRN Spironolactone 25 Mg Tab 25 Mg PO DAILY Zocor (Simvastatin) 10 Mg Tab 10 Mg PO DAILY Prednisone 10 Mg Tab 15 Mg PO DAILY Potassium Chloride ER (Potassium Chloride) 20 Meq Tab 20 Meq PO DAILY Metoprolol Tartrate 100 Mg Tab 100 Mg PO BID Losartan (Losartan Potassium) 100 Mg Tab 100 Mg PO DAILY Furosemide 20 Mg Tab 20 Mg PO EVERY OTHER DAY Perforomist Neb (Formoterol Fumarate) 20 Mcg/2 Ml Neb 1 Nebule INH BID Estroven Mood & Memory (Black Cohosh-Soy Isoflavones-G) 1 Tab 1 Tab PO DAILY Dilantin (Phenytoin Extended) 100 Mg Cap 100 Mg PO BID Clopidogrel (Clopidogrel Bisulfate) 75 Mg Tab 75 Mg PO DAILY Albuterol Neb (Albuterol Sulfate) 2.5 Mg/3 Ml Neb 2.5 Mg NEB Q4HR NEB While awake Review of Systems Except as stated in HPI: all other systems reviewed are Neg Physical Exam Narrative GENERAL: 82yo F in mild distress. SKIN: +Blister in left lower extremity. No mucosal involvement. HEAD: Atraumatic. Normocephalic. EYES: Pupils equal and round. No scleral icterus. No injection or drainage. CARDIOVASCULAR: Regular rate and rhythm. No murmur appreciated. RESPIRATORY: No accessory muscle use. Clear to auscultation. Breath sounds equal bilaterally. GASTROINTESTINAL: Abdomen soft, non-tender, nondistended. 20cm midline wound with no active bleeding or discharge. No rebound tenderness or guarding. MUSCULOSKELETAL: +Bilateral lower extremity edema. +Blister in left lower ext. +Ruptured blister on dorsum of left foot, ttp where the blister was. Mild redness in left toes. DP pulse found using doppler. Sacrum: +Small 0.5cm superficial sacral ulcer. NEUROLOGICAL: Awake and alert. No obvious cranial nerve deficits. Motor grossly within normal limits. Normal speech. PSYCHIATRIC: Appropriate mood and affect; insight and judgment normal. Data Data Last Documented VS Vital Signs Date Time Temp Pulse Resp B/P (MAP) Pulse Ox O2 Delivery O2 Flow Rate FiO2 09/11/17 10:41 70 129/66 (87) 96 09/11/17 07:33 97.8 18 Orders Orders Complete Blood Count With Diff (09/11/17 08:09) Basic Metabolic Panel (Bmp) (09/11/17 08:09) Ketorolac Inj (Toradol Inj) (09/11/17 08:15) Foot, Limited (2vws) (09/11/17 ) Ed Discharge Order (09/11/17 10:34) Labs Laboratory Tests Test 09/11/17 09:06 White Blood Count 7.1 TH/MM3 Red Blood Count 3.24 MIL/MM3 Hemoglobin 10.2 GM/DL Hematocrit 32.1 % Mean Corpuscular Volume 99.2 FL Mean Corpuscular Hemoglobin 31.4 PG Mean Corpuscular Hemoglobin Concent 31.7 % Red Cell Distribution Width 15.3 % Platelet Count 331 TH/MM3 Mean Platelet Volume 7.9 FL Neutrophils (%) (Auto) 72.0 % Lymphocytes (%) (Auto) 18.6 % Monocytes (%) (Auto) 4.8 % Eosinophils (%) (Auto) 1.1 % Basophils (%) (Auto) 3.5 % Neutrophils # (Auto) 5.2 TH/MM3 Lymphocytes # (Auto) 1.3 TH/MM3 Monocytes # (Auto) 0.3 TH/MM3 Eosinophils # (Auto) 0.1 TH/MM3 Basophils # (Auto) 0.2 TH/MM3 CBC Comment DIFF FINAL Differential Comment Blood Urea Nitrogen 29 MG/DL Creatinine 1.50 MG/DL Random Glucose 81 MG/DL Calcium Level 8.3 MG/DL Sodium Level 138 MEQ/L Potassium Level 4.1 MEQ/L Chloride Level 105 MEQ/L Carbon Dioxide Level 25.7 MEQ/L Anion Gap 7 MEQ/L Estimat Glomerular Filtration Rate 33 ML/MIN MDM Medical Decision Making Medical Screen Exam Complete: Yes Emergency Medical Condition: Yes Differential Diagnosis Medication reaction vs. fluid overload vs. wound care vs. cellulitis vs. osteoarthritis vs. fracture Narrative Course 82yo F with recent hospitalization here c/o left foot pain and blisters in lower extremities. Said she has been having edema in her legs since hospitalization and has been taking lasix which is helping. Said she has home health nurse for her abdominal wound but no orders for her lower extremity wounds. Pt has no new medications. No mucosal involvement. No chest pain, sob , or abdominal pain. Labs reviewed, no leukocytosis. H/H low but at baseline. BMP showed mildly elevated creatinine at 1.50. Xray left foot showed no acute abnormality. Pt given toradol which has helped with the pain. sales program manager was consulted and found a place in [facility] for the patient and pt is happy with a higher level of care. Will be discharge to SNF. Diagnosis Primary Impression: Encounter for wound care Patient Instructions: General Instructions Departure Forms: Tests/Procedures Additional Instructions: Please follow up with your primary care physician in 2-3 days. Return to the ED if symptoms worsen. Med/Other Pt SpecificInfo: Prescription(s) given Scripts Acetaminophen (Tylenol) 325 Mg Tab 325 MG PO Q4H Y for PAIN SCALE 1 TO 4, #20 TAB 0 Refills Prov: Roxy Pichardo 09/11/17 Disposition: 03 DISCHARGE TO SNF Condition: Stable PichardoRoxy DO Sep 11, 2017 08:44
[2017-09-11 09:13] LABS: AUTOMATED NEUTROPHIL # 5.2 TH/MM3 (1.8-7.7); BASOPHIL # 0.2 TH/MM3 (0-0.2); BASOPHIL % 3.5 % (0.0-2.0); EOSINOPHIL # 0.1 TH/MM3 (0-0.4); EOSINOPHIL % 1.1 % (0.0-4.0); HEMATOCRIT 32.1 % (35.0-46.0); HEMO FLAGS DIFF FINAL; LYMPH % 18.6 % (9.0-44.0); LYMPHOCYTE # 1.3 TH/MM3 (1.0-4.8); MEAN CELL VOLUME 99.2 FL (80.0-100.0); MEAN CORPUSCULAR HEMOGLOBIN 31.4 PG (27.0-34.0); MEAN CORPUSCULAR HGB CONC 31.7 % (32.0-36.0); MONO % 4.8 % (0.0-8.0); PLATELET COUNT 331 TH/MM3 (150-450); RED BLOOD COUNT 3.24 MIL/MM3 (4.00-5.30); RED CELL DISTRIBUTION WIDTH 15.3 % (11.6-17.2); WHITE BLOOD COUNT 7.1 TH/MM3 (4.0-11.0)
[2017-09-11 09:49] LABS: BICARBONATE 25.7 MEQ/L (21.0-32.0)
[2017-09-11 09:56] LABS: POTASSIUM 4.1 MEQ/L (3.5-5.1)
[2017-09-11] MEDS ORDERED: TYLE325T PO (10:33)
[2017-09-11 10:41] VITALS: BP 129/66; PULSE 70; O2SAT 96
== END 2017-09-11 15:14 ==
LOC: PHED 07:25 → PHEFT 15:14
DX: S90.822D Blister (nonthermal), left foot, subsequent encounter (principal); M79.672 Pain in left foot; R60.0 Localized edema; I10 Essential (primary) hypertension; E78.00 Pure hypercholesterolemia, unspecified; H91.90 Unspecified hearing loss, unspecified ear; X58.XXXD Exposure to other specified factors, subsequent encounter; Z87.39 Personal history of other diseases of the musculoskeletal system and connective tissue; Z86.79 Personal history of other diseases of the circulatory system; Z87.09 Personal history of other diseases of the respiratory system; Z87.19 Personal history of other diseases of the digestive system; Z87.442 Personal history of urinary calculi; Z86.69 Personal history of other diseases of the nervous system and sense organs
CPT/HCPCS: 73620; 80048; 85025; 96374; 99284; J1885